=== PATIENT | female | born 1935 | race Caucasian/White ===

== ENCOUNTER 2023-04-28 21:59 | Inpatient (IN) ==
--- OUTSIDE RECORDS SUMMARY | 2023-04-28 22:07 | External Medical Summary ---
Author Name Unknown Address Unknown Organization [id number]:LABORATORY [facility] - [address] [address] Laboratory Report Ordering Provider Test Date Status WILLY WIN 03/26/2023 10:41:40 Final Observation Date Value Abnormality Reference (Units ) Status Albumin 03/26/2023 10:41:40 3.9 3.8-5.0 (g/dL) Final AST (Aspartate aminotransferase) 03/26/2023 10:41:40 19 10-35 (U/L) Final Alk Phos 03/26/2023 10:41:40 64 35-130 (U/L) Final ALT (Alanine aminotransferase) 03/26/2023 10:41:40 6 Below low normal 10-35 (U/L) Final Bilirubin, Total 03/26/2023 10:41:40 0.6 <=1.2 (mg/dL) Final Bilirubin, Direct 03/26/2023 10:41:40 <0.2 0.0-0.3 (mg/dL) Final Protein 03/26/2023 10:41:40 7.4 6.0-8.3 (g/dL) Final Performing Location LABORATORY [facility] - [address] [address]
--- OUTSIDE RECORDS SUMMARY | 2023-04-28 22:07 | External Medical Summary ---
Author Name Unknown Address Unknown Organization [id number]:LABORATORY [facility] [place] - [address] [facility] [address] Laboratory Report Ordering Provider Test Date Status WILLY WIN 03/26/2023 10:41:40 Final Observation Date Value Abnormality Reference (Units ) Status Triglyceride 03/26/2023 10:41:40 85 <=174 ( mg/dL) Final Triglyceride Reference Range s (mg/dL):
<150 Acceptable
150-174 Borderline high
175-499 High
>=500 Very high Cholesterol 03/26/2023 10:41:40 162 <200 (mg /dL) Final Total Cholesterol Reference Ranges (mg/dL):
<200 Desirable
200-239 Borderline high
>=240 High HDL 03/26/2023 10:41:40 56 >49 (mg/dL ) Final HDL Cholesterol Reference Ra nges (mg/dL):
>=60 High (Desirable)
<50 Low (Undesirable) For Females
<40 Low (Undesirable) For Males NON-HDL CHOLESTEROL 03/26/2023 10:41:40 106 <=159 (mg/dL) Final Non-HDL Cholesterol Referenc e Range (mg/dL):
<100 Target level for high risk ASCVD patient
<130 Optimal for general population
130-159 Near optimal for general population
160-189 Borderline High
190-219 High
>=220 Very High LDL, (calculated) 03/26/2023 10:41:40 89 <= 129 (mg/dL) Final LDL Cholesterol Reference Ra nges (mg/dL):
<70 Target level for high risk ASCVD patient
<100 Optimal for general population
100-129 Near optimal for general population
130-159 Borderline high
160-189 High
>=190 Very high Performing Location LABORATORY [facility] [place] - [address] [facility] [address]
--- OUTSIDE RECORDS SUMMARY | 2023-04-28 22:07 | External Medical Summary ---
Author Name Unknown Address Unknown Organization K1F:LABORATORY [facility] - [address] [address] Laboratory Report Ordering Provider Test Date Status WILLY WIN 03/26/2023 10:41:40 Final Observation Date Value Abnormality Reference (Units ) Status Phosphate 03/26/2023 10:41:40 3.5 2.5-4.8 (m g/dL) Final Performing Location LABORATORY [facility] - [address] [address]
--- OUTSIDE RECORDS SUMMARY | 2023-04-28 22:07 | External Medical Summary ---
Author Name Unknown Address Unknown Organization K1F:LABORATORY [facility] - [facility] [address] [address] Laboratory Report Ordering Provider Test Date Status WILLY WIN 03/26/2023 10:41:40 Final Observation Date Value Abnormality Reference (Units ) Status WBC, Total 03/26/2023 10:41:40 4.65 4.00-10.80 (K/uL) Final RBC 03/26/2023 10:41:40 4.00 3.85-5.15 (M/uL) Final Hemoglobin 03/26/2023 10:41:40 11.7 Below low normal 12.0-15.3 (g/dL) Final HCT 03/26/2023 10:41:40 37.1 36.0-45.2 (%) Final MCV 03/26/2023 10:41:40 92.8 81.5-97.5 (fL) Final MCH 03/26/2023 10:41:40 29.3 27.0-34.0 (pg) Final MCHC 03/26/2023 10:41:40 31.5 32.0-36.0 (g/dL) Final RDW 03/26/2023 10:41:40 17.0 11.5-15.5 (%) Final Platelets 03/26/2023 10:41:40 263 140-400 (K/uL) Final MPV 03/26/2023 10:41:40 10.0 6.6-11.1 (fL) Final Nucleated erythrocytes/100 leukocytes [Ratio] in Blood by Automated count 03/26/2023 10:41:40 0 <=0 (/100 WBCs) Final Performing Location LABORATORY [facility] - [address] [address]
--- OUTSIDE RECORDS SUMMARY | 2023-04-28 22:07 | External Medical Summary ---
Author Name Unknown Address Unknown Organization K01:[facility] [place] [address] [place] [address] Laboratory Report Ordering Provider Test Date Status LAURA NINO 03/26/2023 10:36:00 Final Observation Date Value Abnormality Reference (Units ) Status Erythrocyte sedimentation rate by Photometric method 03/26/2023 10:36:00 78 Above high normal <30 (mm/hour) Final Performing Location [facility] [place] [address] [address]
--- OUTSIDE RECORDS SUMMARY | 2023-04-28 22:07 | External Medical Summary ---
Author Name Unknown Address Unknown Organization K01:[facility] [place] [address] [address] Laboratory Report Ordering Provider Test Date Status LAURA NINO 03/26/2023 10:36:00 Final Observation Date Value Abnormality Reference (Units ) Status Hep B surface Ag 03/26/2023 10:36:00 Negative Neg ative Final Performing Location LABORATORY [facility] - [address] [address]
--- OUTSIDE RECORDS SUMMARY | 2023-04-28 22:07 | External Medical Summary | Summary of Care ---
Author Name Unknown Organization [facility] Address [address] [place] [address] Phone [phone] Care Team Providers Care Buffet Attendant Name Role Phone John Negro MD Primary Care Provider [phone] Reason for Visit * Reason Comments Outpatient Testing Encounter Details Date Type Department Care Team (Late st Contact Info) Description 03/26/2023 10:40 AM EST Laboratory Laboratory, [facility] [address] [place] [address] [facility], Lab [address] [place] [address] Rheumatoid arthritis involving multiple sites with positive rheumatoid factor (HCC); Encounter for long-term (current) use of medications; Chondrocalcinosis due to pyrophosphate crystals; Encounter for screening for other viral diseases; Iatrogenic hypothyroidism; Malignant neoplasm of central portion of left 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); 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) Allergies Active Allergy Reactions Criticality Noted Date Comments Codeine 06/02/2015 Hydroxychloroquine Rash 10/23/2022 Sulfa Antibiotics Muscle pain 06/02/2015 documented as of this encounter (statuses as of 03/26/2023) Medications Medication Sig Dispensed Refills Start Date End Date Status Aspirin 81 MG TBEC Take 1 Tablet by mouth in the morning. 0 Active citalopram (CELEXA) 10 MG Tablet Take 1 Tablet by mouth in the morning. 0 Active Acetaminophen 500 MG Oral Tablet take 2 tablets by oral route once daily as needed 0 Active Levothyroxine Sodium 125 MCG Oral Tablet (Levoxyl) 0 02/25/2021 Active Multi-Vitamin Oral Tablet take 1 tablet by oral route every day with food 0 Active Famotidine 20 MG Oral Tablet (Pepcid) Take by mouth 1 Tablet before bedtime. 34 Tablet 0 04/20/2021 Active Albuterol Sulfate HFA 108 (90 Base) MCG/ACT Inhalation Aerosol Solution Inhale 2 Puffs by mouth in the morning and 2 Puffs at noon and 2 Puffs in the evening and 2 Puffs before bedtime. 18 g 1 04/27/2022 Active Benzonatate 100 MG Oral Capsule (Tessalsummer Perlderrick) Take 1 Capsule by mouth in the morning and 1 Capsule at noon and 1 Capsule before bedtime. 30 Capsule 1 04/27/2022 Active Hospital, Clinic, or Other Facility Administered Medication Ordered Dose Route Frequency Start Date End Date Status Albuterol Sulfate (Proventil) (2.5 MG/3ML) 0.083% inhalation solution 2.5 mgIndications:Mild intermittent asthma without complication 2.5 mg NEBULIZER PRN 05/17/2022 05/17/2023 Acti ve Albuterol Sulfate (Proventil) (5 MG/ML) 0.5% *conc* inhalation solution 2.5 mgIndications:Mild intermittent asthma without complication 2.5 mg NEBULIZER PRN 05/17/2022 05/17/2023 Acti ve documented as of this encounter (statuses as of 03/26/2023) Active Problems Problem Noted Date Diagnosed Date Rheumatoid arthritis involvi ng multiple sites with positive rheumatoid factor 10/23/2022 Bilateral pneumonia 04/22/2022 Human metapneumovirus (hMPV) pneumonia Osteoarthritis of both wrists 09/10/2018 Chondrocalcinosis due to pyrophosphate crystals 07/25/2018 Trigger middle finger of right hand 07/25/2018 Influenza A 03/25/2017 Right lower lobe pneumonia 03/25/2017 Hypokalemia 03/25/2017 documented as of this encounter (statuses as of 03/26/2023) Social History Tobacco Use Types Packs/Day Years Used Date Smoking Tobacco: Former Cigarettes Smokeless Tobacco: Never Alcohol Use Standard Drinks/Week Comments No 0 (1 standard drink = 0.6 oz pur e alcohol) Sex and Gender Information Value Date Recorded Sex Assigned at Not on file Gender Identity Not on file Sexual Orientation Not on file Job Start Date Occupation Industry Not on file Not on file Not on file documented as of this encounter Functional Status Functional Status Response Date of Assess ment Are you deaf or do you have serious difficulty h earing? No 04/22/2022 Are you blind or do you have serious difficulty seeing, even when wearing glasses? No 04/22/2022 Do you have serious difficul ty walking or climbing stairs? (5 years old or older) No 04/22/2022 Do you have difficulty dress ing or bathing? (5 years old or older) No 04/22/2022 Because of a physical, menta l, or emotional condition, do you have difficulty doing errands alone such as visiting a doctor s office or shopping? (15 years old or older) No 04/23/19 Cognitive Status Response Date of Assessm ent Because of a physical, menta l, or emotional condition, do you have serious difficulty concentrating, remembering, or making decisions? (5 years old or older) No 04/22/2022 documented as of this encounter Plan of Treatment Upcoming Encounters Date Type Department Care Team (Late st Contact Info) Description 05/15/2023 11:15 AM EDT Appointment Radiology, [facility] [address] [place] [address] 07/18/2023 3:00 PM EDT [facility] [place] [address] [facility] [phone] Keon Guerrero PA-C [address] [facility] [address] Pending Results Name Type Priority Associated Diagnoses Date /Time BASIC METABOLIC PANEL Lab STAT Iatrogenic hypothyroidism Malignant neoplasm of central portion of left 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) 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) 03/26/2023 10:41 AM EST CBC WITH WBC DIFFERENTIAL Lab STAT Iatrogenic hypothyroidism Malignant neoplasm of central portion of left 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) 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) 03/26/2023 10:41 AM EST GGTP Lab STAT Iatrogenic hypothyroidism Malignant neoplasm of central portion of left 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) 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) 03/26/2023 10:41 AM EST HEPATIC FUNCTION PANEL Lab STAT Iatrogenic hypothyroidism Malignant neoplasm of central portion of left 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) 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) 03/26/2023 10:41 AM EST LD Lab STAT Iatrogenic hypothyroidism Malignant neoplasm of central portion of left 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) 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) 03/26/2023 10:41 AM EST LIPID PANEL WITH DIRECT LDL IF TG IS HIGH Lab STAT Iatrogenic hypothyroidism Malignant neoplasm of central portion of left 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) 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) 03/26/2023 10:41 AM EST MAGNESIUM Lab STAT Iatrogenic hypothyroidism Malignant neoplasm of central portion of left 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) 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) 03/26/2023 10:41 AM EST PHOSPHORUS Lab STAT Iatrogenic hypothyroidism Malignant neoplasm of central portion of left 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) 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) 03/26/2023 10:41 AM EST TSH Lab STAT Iatrogenic hypothyroidism Malignant neoplasm of central portion of left 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) 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) 03/26/2023 10:41 AM EST CBC Lab STAT Iatrogenic hypothyroidism Malignant neoplasm of central portion of left 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) 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) 03/26/2023 10:41 AM EST DIFFERENTIAL, AUTOMATED Lab STAT Iatrogenic hypothyroidism Malignant neoplasm of central portion of left 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) 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) 03/26/2023 10:41 AM EST Scheduled Orders Name Type Priority Associated Diagnoses Orde r Schedule HEPATITIS C ANTIBODY Lab Routine 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) Ordered: 03/26/2023 HEPATITIS C RNA ADD ON Lab Routine 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) Ordered: 03/26/2023 Health Maintenance Due Date Last Done Comments COVID-19 Vaccine (#1) 04/02/1936 Pneumococcal Vaccine: 65+ Years (1 - PCV) 10/01/1941 Depression Screening 1947 DTaP,Tdap,and Td Vaccines (1 - Tdap) 1956 Zoster Vaccines (1 of 2) 10/01/1987 Influenza Vaccine (FLU shot) (#1) 2022 TSH 08/29/2023 08/28/2022, 02/12, 07/01/2021, Additional history exists DXA Scan 06/27/2028 06/27/2021 GARDASIL-HPV IMMUNIZATION SERIES Aged Out No longer eligible based on patient's age to complete this topic Hepatitis B Aged Out No longer eligi ble based on patient's age to complete this topic MENINGOCOCCAL (MENACTRA/MENVEO) Aged Out No longer eligible based on patient's age to complete this topic documented as of this encounter Medical Devices Not on filedocumented as of this encounter Visit Diagnoses Diagnosis Rheumatoid arthritis involving multiple sites with positive rheumatoid factor (HCC) Encounter for long-term (current) use of medications Encounter for long-term (current) use of other medications 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 Encounter for screening for other viral diseases Iatrogenic hypothyroidism Other iatrogenic hypothyroidism Malignant neoplasm of central portion of left 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) Malignant neoplasm of central portion of female breast 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) Malignant neoplasm of central portion of female breast documented in this encounter Advance Directives Latest Code Status on File Code Status Date Activated Date Inactivated Comments Full Code 04/22/2022 1:26 PM 04/27/2022 7:05 PM This order reflects the patients wishes and were consensually agreed upon. Question Answer Comments Discussion of Advance Directives occurred with: Patient Does the patient have a Living Will? No Does the patient have Health Care Power of Co Founder And Chief Strategy Officer? No Code Status History Code Status Date Activated Date Inactivated Comments Full Code 03/25/2017 6:36 PM 03/28/2017 11:14 PM This order reflects the patients wishes and were consensually agreed upon. Question Answer Comments Discussion of Advance Directives occurred with: Patient Does the patient have a Living Will? No Does the patient have Health Care Power of Co Founder And Chief Strategy Officer? No Care Teams Buffet Attendant Relationship Specialty Start Date End Date John Negro MD [address] [place] [address] PCP - General Hematology 03/03/16 documented as of this encounter
--- OUTSIDE RECORDS SUMMARY | 2023-04-28 22:07 | External Medical Summary | Summary of Care ---
Author Name Unknown Organization [facility] Address [address] [place] [address] Phone [phone] Care Team Providers Care Bridge Expert Name Role Phone John Negro MD Primary Care Provider [phone] Reason for Visit * Reason Comments Outpatient Testing Encounter Details Date Type Department Care Team (Late st Contact Info) Description 03/26/2023 10:40 AM EST Laboratory Laboratory, [facility] [address] [place] [address] [facility], Lab [address] [place] [address] Rheumatoid arthritis involving multiple sites [...] Description 05/15/2023 11:15 AM EDT Appointment Radiology, [facility] [address] [place] [address] 07/18/2023 3:00 PM EDT [facility] [place] [address] [facility] [place] [phone] Keon Guerrero PA-C [address] [facility] [address] Pending Results Name Type Priority Associated Diagnoses [...] Type Priority Associated Diagnoses Orde r Schedule CBC Lab Routine Rheumatoid arthritis involving multiple sites with positive rheumatoid factor (HCC) Encounter for long-term (current) use of medications Ordered: 03/26/2023 DIFFERENTIAL, AUTOMATED Lab Routine Rheumatoid arthritis involving multiple sites with positive rheumatoid factor (HCC) Encounter for long-term (current) use of medications Ordered: 03/26/2023 HEPATITIS C ANTIBODY Lab Routine Chondrocalcinosis due [...] the patient have Health Care Power of Shorts Sifter? No Code Status History Code Status Date Activated Date Inactivated Comments Full Code 03/25/2017 6:36 PM 03/28/2017 11:14 PM This order reflects the patients wishes and were consensually agreed upon. Question Answer Comments Discussion of Advance Directives occurred with: Patient Does the patient have a Living Will? No Does the patient have Health Care Power of Shorts Sifter? No Care Teams Bridge Expert Relationship Specialty Start Date End Date John Negro MD [address] [place] [id number] PCP - General Hematology 03/03/16 documented as of this encounter
--- OUTSIDE RECORDS SUMMARY | 2023-04-28 22:07 | External Medical Summary ---
Author Name Unknown Address Unknown Organization K1F:LABORATORY [facility] - [address] [address] Laboratory Report Ordering Provider Test Date Status WILLY WIN 03/26/2023 10:41:40 Final Observation Date Value Abnormality Reference (Units ) Status TSH 03/26/2023 10:41:40 2.07 0.27-4.20 (uIU/mL) Final Performing Location LABORATORY [facility] - [address] [place] [address]
--- OUTSIDE RECORDS SUMMARY | 2023-04-28 22:07 | External Medical Summary | Summary of Care ---
Author Name Unknown Organization [facility] Address [address] [place] [address] Phone [phone] Care Team Providers Care Pe Manager Name Role Phone John Negro MD Primary Care Provider [phone] Reason for Visit * Reason Comments Outpatient Testing Encounter Details Date Type Department Care Team (Late st Contact Info) Description 03/26/2023 10:40 AM EST Laboratory Laboratory, [facility] [address] [place] [address] [facility], Lab [address] [place] [address] Rheumatoid arthritis involving multiple sites [...] Description 05/15/2023 11:15 AM EDT Appointment Radiology, [facility] [address] [address] 07/18/2023 3:00 PM EDT [facility] [address] [facility] [phone] Ke[facility] Guerrero [facility]C [address] [facility] [address] Pending Results Name Type Priority Associated Diagnoses Date /Time ERYTHROCYTE SEDIMENTATION RATE (ESR) Lab Routine Rheumatoid arthritis involving multiple sites with positive rheumatoid factor (HCC) Encounter for long-term (current) use of medications 03/26/2023 10:36 AM EST HEPATITIS B CORE ANTIBODIES IGG AND IGM Lab Routine 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) Encounter for screening for other viral diseases 03/26/2023 10:36 AM EST HEPATITIS C ANTIBODY SCREEN WITH PROGRESSION TO HEPATITIS C RNA QUANTITATIVE Lab Routine 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) 03/26/2023 10:36 AM EST QUANTIFERON TB GOLD PLUS Lab Routine 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) 03/26/2023 10:36 AM EST HEPATITIS B SURFACE ANTIBODY Lab Routine 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) 03/26/2023 10:36 AM EST HEPATITIS B SURFACE ANTIGEN Lab Routine 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) Encounter for screening for other viral diseases 03/26/2023 10:36 AM EST HEPATITIS C ANTIBODY Lab Routine 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) 03/26/2023 10:36 AM EST HEPATITIS C RNA ADD ON Lab Routine 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) 03/26/2023 10:36 AM EST GGTP Lab STAT Iatrogenic hypothyroidism [...] 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) 03/26/2023 10:41 AM EST Health Maintenance Due Date Last Done Comments COVID-19 Vaccine (#1) 04/02/1936 Pneumococcal Vaccine: 65+ Years (1 - PCV) 10/01/1941 Depression Screening 1947 DTaP,Tdap,and Td Vaccines (1 - Tdap) 1956 Zoster Vaccines (1 of 2) 10/01/1987 Influenza Vaccine (FLU shot) (#1) 2022 TSH 03/26/2024 03/26/2023, 08/12, 02/27/2022, Additional history exists DXA Scan 06/27/2028 06/27/2021 [...] Not on filedocumented as of this encounter Procedures Procedure Name Priority Date/Time Associated Diagnosis Comments DIFFERENTIAL, AUTOMATED STAT 03/26/2023 10:41 AM EST Iatrogenic hypothyroidism Malignant neoplasm of central portion of left 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) 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) HEPATIC FUNCTION PANEL STAT 03/26/2023 10:41 AM EST Iatrogenic hypothyroidism Malignant neoplasm of central portion of left 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) 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) BASIC METABOLIC PANEL STAT 03/26/2023 10:41 AM EST Iatrogenic hypothyroidism Malignant neoplasm of central portion of left 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) 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) CBC STAT 03/26/2023 10:41 AM EST Iatrogenic hypothyroidism Malignant neoplasm of central portion of left 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) 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) PHOSPHORUS STAT 03/26/2023 10:41 AM EST Iatrogenic hypothyroidism Malignant neoplasm of central portion of left 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) 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) LD STAT 03/26/2023 10:41 AM EST Iatrogenic hypothyroidism Malignant neoplasm of central portion of left 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) 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) CBC STAT 03/26/2023 10:41 AM EST Iatrogenic hypothyroidism Malignant neoplasm of central portion of left 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) 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) TSH STAT 03/26/2023 10:41 AM EST Iatrogenic hypothyroidism Malignant neoplasm of central portion of left 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) 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) MAGNESIUM STAT 03/26/2023 10:41 AM EST Iatrogenic hypothyroidism Malignant neoplasm of central portion of left 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) 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) documented in this encounter Results * (ABNORMAL) DIFFERENTIAL, AUTOMATED (03/26/2023 10:41 AM EST) WBC 4.65 4.00 - 10.80 K/uL 03/26/2023 10:58 AM EST [facility] Neutrophils % 53.4 40.0 - 75.0 % 03/26/2023 10:58 AM EST [facility] Lymphocytes % 25.8 18.0 - 42.0 % 03/26/2023 10:58 AM EST [facility] Monocytes % 8.8 1.0 - 11.0 % 03/26/2023 10:58 AM EST [facility] Eosinophils % 10.5(H) 0.0 - 6.0 % 03/26/2023 10:58 AM EST [facility] Basophils % 1.3 0.0 - 2.0 % 03/26/2023 10:58 AM EST [facility] Immature Granulocytes % 0.2 0.0 - 2.0 % 03/26/2023 10:58 AM EST [facility] Absolute Neutrophils 2.48 1.80 - 7.70 K/uL 03/26/2023 10:58 AM EST [facility] Absolute Lymphocytes 1.20 1.00 - 4.80 K/ul 03/26/2023 10:58 AM EST [facility] Absolute Monocytes 0.41 0.00 - 1.10 K/uL 03/26/2023 10:58 AM EST [facility] Absolute Eosinophils 0.49 0.00 - 0.70 K/uL 03/26/2023 10:58 AM EST [facility] Absolute Basophils 0.06 0.00 - 0.20 K/uL 03/26/2023 10:58 AM EST [facility] Absolute Immature Granulocytes 0.01 0.00 - 0.20 K/uL 03/26/2023 10:58 AM EST [facility] Blood Venous blood specimen / Unknown Venipuncture / Unknown 03/26/2023 10:41 AM EST 03/26/2023 10:45 AM EST John Negro MD LAB BLOOD ORDERABLES LABORATORY [facility] [address] [place] [address] * (ABNORMAL) CBC (03/26/2023 10:41 AM EST) WBC 4.65 4.00 - 10.80 K/uL 03/26/2023 10:58 AM EST LAB[facility]ATORY [facility] RBC 4.00 3.85 - 5.15 M/uL 03/26/2023 10:58 AM EST LAB[facility]ATORY [facility] HGB 11.7(L) 12.0 - 15.3 g/dL 03/26/2023 10:58 AM EST LAB[facility]ATORY [facility] HCT 37.1 36.0 - 45.2 % 03/26/2023 10:58 AM EST LAB[facility]ATORY [facility] MCV 92.8 81.5 - 97.5 fL 03/26/2023 10:58 AM EST LAB[facility]ATORY [facility] MCH 29.3 27.0 - 34.0 pg 03/26/2023 10:58 AM EST LAB[facility]ATORY [facility] MCHC 31.5 32.0 - 36.0 g/dL 03/26/2023 10:58 AM EST LAB[facility]ATORY [facility] RDW 17.0 11.5 - 15.5 % 03/26/2023 10:58 AM EST LAB[facility]ATORY [facility] PLT 263 140 - 400 K/uL 03/26/2023 10:58 AM EST LAB[facility]ATORY [facility] MPV 10.0 6.6 - 11.1 fL 03/26/2023 10:58 AM EST LAB[facility]ORY [facility] nRBCs 0 <=0 /100 WBCs 03/26/2023 10:58 AM EST LAB[facility]ORY [facility] Blood Venous blood specimen / Unknown Venipuncture / Unknown 03/26/2023 10:41 AM EST 03/26/2023 10:45 AM EST John Negro MD LAB BLOOD ORDERABLES Performing Organization Address City/[facility]/ZIP Co de Phone Number LABORATORY [address] [address] * TSH (03/26/2023 10:41 AM EST) TSH 2.07 0.27 - 4.20 uIU/mL 03/26/2023 11:19 AM EST LABORATORY [facility] Blood Venous blood specimen / Unknown Venipuncture / Unknown 03/26/2023 10:41 AM EST 03/26/2023 10:45 AM EST John Negro MD LAB BLOOD ORDERABLES Performing Organization Address City/[facility] Co de Phone Number LABORATORY [address] [address] * PHOSPHORUS (03/26/2023 10:41 AM EST) Phosphorus 3.5 2.5 - 4.8 mg/dL 03/26/2023 11:19 AM EST LABORATORY [facility] Blood Venous blood specimen / Unknown Venipuncture / Unknown 03/26/2023 10:41 AM EST 03/26/2023 10:45 AM EST John Negro MD LAB BLOOD ORDERABLES Performing Organization Address City/[facility] de Phone Number LABORATORY [address] [address] * MAGNESIUM (03/26/2023 10:41 AM EST) Magnesium 2.1 1.5 - 2.6 mg/dL 03/26/2023 11:19 AM EST LABORATORY GL Blood Venous blood specimen / Unknown Venipuncture / Unknown 03/26/2023 10:41 AM EST 03/26/2023 10:45 AM EST John Negro MD LAB BLOOD ORDERABLES Performing Organization Address City/[facility] de Phone Number LABORATORY [address] [address] * LD (03/26/2023 10:41 AM EST) LD 205 <=250 U/L 03/26/2023 11:19 AM EST LABORATORY GL Blood Venous blood specimen / Unknown Venipuncture / Unknown 03/26/2023 10:41 AM EST 03/26/2023 10:45 AM EST John Negro MD LAB BLOOD ORDERABLES Performing Organization Address [facility] de Phone Number LABORATORY [address] [phone] * (ABNORMAL) HEPATIC FUNCTION PANEL (03/26/2023 10:41 AM EST) Albumin 3.9 3.8 - 5.0 g/dL 03/26/2023 11:19 AM EST [facility] AST 19 10 - 35 U/L 03/26/2023 11:19 AM EST [facility] Alkaline Phosphatase 64 35 - 130 U/L 03/26/2023 11:19 AM EST [facility] ALT 6(L) 10 - 35 U/L 03/26/2023 11:19 AM EST [facility] Bilirubin, Total 0.6 <=1.2 mg/dL 03/26/2023 11:19 AM EST [facility] Bilirubin, Direct <0.2 0.0 - 0.3 mg/dL 03/26/2023 11:19 AM EST [facility] Protein 7.4 6.0 - 8.3 g/dL 03/26/2023 11:19 AM EST [facility] Blood Venous blood specimen / Unknown Venipuncture / Unknown 03/26/2023 10:41 AM EST 03/26/2023 10:45 AM EST John Negro MD LAB BLOOD ORDERABLES Performing Organization Address [facility] Co de Phone Number LABORATORY [address] [phone] * BASIC METABOLIC PANEL (03/26/2023 10:41 AM EST) BUN 14 6 - 20 mg/dL 03/26/2023 11:19 AM EST [facility] Creatinine 0.7 0.5 - 1.0 mg/dL 03/26/2023 11:19 AM EST [facility] Estimated Glomerular Filtration Rate 86 >=60 mL/min 03/26/2023 11:19 AM EST [facility] Comment:eGFR is calculated b ased on the CKD-EPI 2020 equation Sodium 139 135 - 146 mmol/L 03/26/2023 11:19 AM EST [facility] Potassium 4.4 3.5 - 5.1 mmol/L 03/26/2023 11:19 AM EST [facility] Chloride 103 98 - 107 mmol/L 03/26/2023 11:19 AM EST [facility] CO2 27 22 - 32 mmol/L 03/26/2023 11:19 AM EST [facility] Anion Gap 9 7 - 15 mmol/L 03/26/2023 11:19 AM EST [facility] Glucose 94 70 - 120 mg/dL 03/26/2023 11:19 AM EST [facility] Calcium 8.9 8.4 - 10.2 mg/dL 03/26/2023 11:19 AM EST [facility] Blood Venous blood specimen / Unknown Venipuncture / Unknown 03/26/2023 10:41 AM EST 03/26/2023 10:45 AM EST John Negro MD LAB BLOOD ORDERABLES Performing Organization Address City/State/[facility] Co de Phone Number [facility] [address] [place] [address] documented in this encounter Visit Diagnoses Diagnosis Rheumatoid arthritis [...] the patient have Health Care Power of Band Master? No Code Status History Code Status Date Activated Date Inactivated Comments Full Code 03/25/2017 6:36 PM 03/28/2017 11:14 PM This order reflects the patients wishes and were consensually agreed upon. Question Answer Comments Discussion of Advance Directives occurred with: Patient Does the patient have a Living Will? No Does the patient have Health Care Power of Band Master? No Care Teams Pe Manager Relationship Specialty Start Date End Date John Negro MD [address] [place] [address] PCP - General Hematology 03/03/16 documented as of this encounter
--- OUTSIDE RECORDS SUMMARY | 2023-04-28 22:07 | External Medical Summary ---
Author Name Unknown Address Unknown Organization [id number]:[facility] [address] [place] [address] Laboratory Report Ordering Provider Test Date Status WILLY WIN 03/26/2023 10:41:40 Final Observation Date Value Abnormality Reference (Units ) Status GGT 03/26/2023 10:41:40 16 <=40 (U/L) Final Performing Location [facility] - [address] [place] [address]
--- OUTSIDE RECORDS SUMMARY | 2023-04-28 22:07 | External Medical Summary | Summary of Care ---
Author Name Unknown Organization [facility] Address [address] [place] [address] Phone [phone] Care Team Providers Care Finish Sander Name Role Phone John Negro MD Primary Care Provider [phone] Encounter Details Date Type Department Care Team ([facility] st Contact Info) Description 02/16/2023 Orders Only Radiology, [facility] [address] [place] [address] Requisition, External Radiology [address] [place] [address] Calculus of kidney* Allergies Active Allergy Reactions Criticality Noted Date Comments Codeine 06/02/2015 Hydroxychloroquine Rash 10/23/2022 Sulfa Antibiotics Muscle pain 06/02/2015 documented as of this encounter (statuses as of 02/16/2023) Medications Medication Sig Dispensed Refills Start Date [...] 04/27/2022 Active Benzonatate 100 MG Oral Capsule (Drew Hathaway) Take 1 Capsule by mouth in the [...] as of this encounter (statuses as of 02/16/2023) Active Problems Problem Noted Date Diagnosed Date Rheumatoid arthritis involvi ng multiple sites with positive rheumatoid factor 10/23/2022 Bilateral pneumonia 04/22/2022 Human metapneumovirus (hMPV) pneumonia Osteoarthritis of both wrists 09/10/2018 Chondrocalcinosis due to pyrophosphate crystals 07/25/2018 Trigger middle finger of right hand 07/25/2018 Influenza A 03/25/2017 Right lower lobe pneumonia 03/25/2017 Hypokalemia 03/25/2017 documented as of this encounter (statuses as of 02/16/2023) Social History Tobacco Use Types Packs/Day Years [...] (15 years old or older) No 04/23/19 23 Cognitive Status Response Date of Assessm ent Because of a physical, menta l, or emotional condition, do you have serious difficulty concentrating, remembering, or making decisions? (5 years old or older) No 04/22/2022 documented as of this encounter Plan of Treatment Upcoming Encounters Date Type Department Care Team (Late st Contact Info) Description 05/15/2023 11:15 AM EDT Appointment Radiology, [facility] [address] [place] [address] 07/18/2023 3:00 PM EDT Office Visit Pulmonary Medicine [facility] [place] [address] [place] [phone] Keon Guerrero PA-C [address] [place] [place] [address] Scheduled Orders Name Type Priority Associated Diagnoses Orde r Schedule US RENAL Medical Imaging Routine Calculus of kidney Expected: 05/15/2023, Expires: 03/19/2024 Health Maintenance Due Date Last Done Comments [...] as of this encounter Visit Diagnoses Diagnosis Calculus of kidney- Primary documented in this encounter Advance Directives Latest Code Status on File Code Status Date Activated Date Inactivated Comments Full Code 04/22/2022 1:26 PM 04/27/2022 7:05 PM This order reflects the patients wishes and were consensually agreed upon. Question Answer Comments Discussion of Advance Directives occurred with: Patient Does the patient have a Living Will? No Does the patient have Health Care Power of Marketing Services Manager? No Code Status History Code Status Date Activated Date Inactivated Comments Full Code 03/25/2017 6:36 PM 03/28/2017 11:14 PM This order reflects the patients wishes and were consensually agreed upon. Question Answer Comments Discussion of Advance Directives occurred with: Patient Does the patient have a Living Will? No Does the patient have Health Care Power of Marketing Services Manager? No Care Teams Finish Sander Relationship Specialty Start Date End Date John Negro MD [address] [place] [address] PCP - General Hematology 03/03/16 documented as of this encounter
--- OUTSIDE RECORDS SUMMARY | 2023-04-28 22:07 | External Medical Summary ---
Author Name Unknown Address Unknown Organization : Laboratory Report Ordering Provider Test Date Status LAURA NINO 03/26/2023 10:36:00 Final Observation Date Value Abnormality Reference (Units ) Status Mycobacterium tuberculosis stimulated gamma interferon [Interpretation] in Blood Qualitative 03/26/2023 10:36:00 NEGATIVE NEGATIVE Final Negative test result. M. tub erculosis complex
infection unlikely. Gamma interferon background [Units/volume] in Blood by Immunoassay 03/26/2023 10:36:00 0.02 (IU/mL) Final Mitogen stimulated gamma int erferon [Units/volume] corrected for background in Blood 03/26/2023 10:36:00 1.08 (IU/mL) Final Mycobacterium tuberculosis s timulated gamma interferon release by CD4+ T-cells [Units/volume] corrected for background in Blood 03/26/2023 10:36:00 0.00 (IU/mL) Final Mycobacterium tuberculosis s timulated gamma interferon release by CD4+ and CD8+ T-cells [Units/volume] corrected for background in Blood 03/26/2023 10:36:00 0.00 (IU/mL) Final The Nil tube value reflects the background interferon
gamma immune response of the patient's blood sample.
This value has been subtracted from the patient's
displayed TB and Mitogen results.
Lower than expected results with the Mitogen tube
prevent false-negative Quantiferon readings by detect-
ing a patient with a potential immune suppressive
condition and/or suboptimal pre-analytical specimen
handling.
The TB1 Antigen tube is coated with the M.
tuberculosis-specific antigens designed to elicit
responses from TB antigen primed CD4+ helper
T-lymphocytes.
The TB2 Antigen tube is coated with the M.
tuberculosis-specific antigens designed to elicit
responses from TB antigen primed CD4+ helper and CD8+
cytotoxic T-lymphocytes.
For additional information, please refer to
http://education.[employer].Keduo/faq/NTW560
(This link is being provided for information/
educational purposes only.)

Test Performed at:
[facility]
[address] [facility]
[place] [address]
Sae Gil M.D., Ph.D.,Director of Laboratories Performing Location
--- OUTSIDE RECORDS SUMMARY | 2023-04-28 22:07 | External Medical Summary | Summary of Care ---
Author Name Unknown Organization [facility] Address [address] [place] [address] Phone [phone] Care Team Providers Care Chronic Disease Epidemiologist Name Role Phone John Negro MD Primary Care Provider [phone] Reason for Visit * Reason Comments Outpatient Testing Encounter Details Date Type Department Care Team (Late st Contact Info) Description 03/26/2023 10:40 AM EST Laboratory Laboratory, [facility] [address] [place] [address] [facility], Lab [address] [place] [address] Rheumatoid arthritis involving multiple sites [...] as of this encounter (statuses as of 04/04/2023) Medications Medication Sig Dispensed Refills Start Date [...] as of this encounter (statuses as of 04/04/2023) Active Problems Problem Noted Date Diagnosed Date Rheumatoid arthritis involvi ng multiple sites with positive rheumatoid factor 10/23/2022 Bilateral pneumonia 04/22/2022 Human metapneumovirus (hMPV) pneumonia Osteoarthritis of both wrists 09/10/2018 Chondrocalcinosis due to pyrophosphate crystals 07/25/2018 Trigger middle finger of right hand 07/25/2018 Influenza A 03/25/2017 Right lower lobe pneumonia 03/25/2017 Hypokalemia 03/25/2017 documented as of this encounter (statuses as of 04/04/2023) Social History Tobacco Use Types Packs/Day Years [...] Description 05/15/2023 11:15 AM EDT Appointment Radiology, [facility] [address] [place] [address] 07/18/2023 3:00 PM EDT [facility] [address] [facility] [phone] Keon Guerrero PA-C [address] [facility] [address] Health Maintenance Due Date Last Done Comments Pneumococcal Vaccine: 65+ Years (1 of 2 - PCV) 10/01/1941 Depression Screening 1947 DTaP,Tdap,and Td Vaccines (1 - Tdap) 1956 Zoster Vaccines (1 of 2) 10/01/1987 COVID-19 Vaccine (1 - 2022-24 season) 2022 Influenza Vaccine (FLU shot) (#1) 2022 TSH 03/26/2024 03/26/2023, 07/08/2022, 02/27/2022, Additional history exists DXA Scan 06/27/2028 [...] central portion of right 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) LIPID PANEL WITH DIRECT LDL IF TG IS HIGH STAT 03/26/2023 10:41 AM EST Iatrogenic hypothyroidism [...] central portion of right 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) GGTP STAT 03/26/2023 10:41 AM EST Iatrogenic hypothyroidism [...] central portion of right 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) HEPATITIS C RNA ADD ON Routine 03/26/2023 10:36 AM EST 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) QUANTIFERON TB GOLD PLUS Routine 03/26/2023 10:36 AM EST 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) HEPATITIS B SURFACE ANTIBODY Routine 03/26/2023 10:36 AM EST 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) HEPATITIS C ANTIBODY SCREEN WITH PROGRESSION TO HEPATITIS C RNA QUANTITATIVE Routine 03/26/2023 10:36 AM EST 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) HEPATITIS C ANTIBODY Routine 03/26/2023 10:36 AM EST 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) HEPATITIS B CORE ANTIBODIES IGG AND IGM Routine 03/26/2023 10:36 AM EST 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) Encounter for screening for other viral diseases HEPATITIS B SURFACE ANTIGEN Routine 03/26/2023 10:36 AM EST 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) Encounter for screening for other viral diseases ERYTHROCYTE SEDIMENTATION RATE (ESR) Routine 03/26/2023 10:36 AM EST Rheumatoid arthritis involving multiple sites with positive rheumatoid factor (HCC) Encounter for long-term (current) use of medications documented in this encounter Results * (ABNORMAL) [...] 0.20 K/uL 03/26/2023 10:58 AM EST LABORATORY [facility] Blood Venous blood specimen / Unknown Venipuncture / Unknown 03/26/2023 10:41 AM EST 03/26/2023 10:45 AM EST John Negro MD LAB BLOOD ORDERABLES LABORATORY [facility] [address] [place] [address] * (ABNORMAL) CBC (03/26/2023 10:41 AM EST) WBC 4.65 4.00 - 10.80 K/uL 03/26/2023 10:58 AM EST LABORATORY [facility] RBC 4.00 3.85 - 5.15 M/uL 03/26/2023 10:58 AM EST LABORATORY [facility] HGB 11.7(L) 12.0 - 15.3 g/dL 03/26/2023 10:58 AM EST LABORATORY [facility] HCT 37.1 36.0 - 45.2 % 03/26/2023 10:58 AM EST LABORATORY [facility] MCV 92.8 81.5 - 97.5 fL 03/26/2023 10:58 AM EST LABORATORY [facility] MCH 29.3 27.0 - 34.0 pg 03/26/2023 10:58 AM EST LABORATORY [facility] MCHC 31.5 32.0 - 36.0 g/dL 03/26/2023 10:58 AM EST LABORATORY [facility] RDW 17.0 11.5 - 15.5 % 03/26/2023 10:58 AM EST LABORATORY [facility] PLT 263 140 - 400 K/uL 03/26/2023 10:58 AM EST LABORATORY [facility] MPV 10.0 6.6 - 11.1 fL 03/26/2023 10:58 AM EST LABORATORY [facility] nRBCs 0 <=0 /100 WBCs 03/26/2023 10:58 AM EST LABORATORY [facility] Blood Venous blood specimen / Unknown Venipuncture / Unknown 03/26/2023 10:41 AM EST 03/26/2023 10:45 AM EST John Negro MD LAB BLOOD ORDERABLES Performing Organization Address City/[facility]/ZIP Co de Phone Number LABORATORY [address] [address] * TSH (03/26/2023 10:41 AM EST) TSH 2.07 0.27 - 4.20 uIU/mL 03/26/2023 11:19 AM EST LABORATORY [facility] Blood Venous blood specimen / Unknown Venipuncture / Unknown 03/26/2023 10:41 AM EST 03/26/2023 10:45 AM EST John Negro MD LAB BLOOD ORDERABLES Performing Organization Address [facility] Co de Phone Number LABORATORY [address] [address] * PHOSPHORUS (03/26/2023 10:41 AM EST) Phosphorus 3.5 2.5 - 4.8 mg/dL 03/26/2023 11:19 AM EST LABORATORY [facility] Blood Venous blood specimen / Unknown Venipuncture / Unknown 03/26/2023 10:41 AM EST 03/26/2023 10:45 AM EST Narrative Authorizing Provider Result Dg Negro MD LAB BLOOD ORDERABLES Performing Organization Address City/[facility]/ZIP Co de Phone Number LABORATORY [address] [address] * MAGNESIUM (03/26/2023 10:41 AM EST) Magnesium 2.1 1.5 - 2.6 mg/dL 03/26/2023 11:19 AM EST LABORATORY [facility] Blood Venous blood specimen / Unknown Venipuncture / Unknown 03/26/2023 10:41 AM EST 03/26/2023 10:45 AM EST Narrative Authorizing Provider Result Dg Negro MD LAB BLOOD ORDERABLES LABORATORY [address] [address] * LIPID PANEL WITH DIRECT LDL IF TG IS HIGH (03/26/2023 10:41 AM EST) Pathologist [facility] Triglycerides 85 <=174 mg/dL 03/26/2023 2:59 PM EST LABORATORY [facility] Comment: Triglyceride Reference Ranges (mg/dL): <150 Acceptable 150-174 Borderline high 175-499 High >=500 Very high Cholesterol 162 <200 mg/dL 03/26/2023 2:59 PM EST LABORATORY [facility] Comment: Total Cholesterol Reference Ranges (mg/dL): <200 Desirable 200-239 Borderline high >=240 High HDL Cholesterol 56 >49 mg/dL 2:59 PM EST LABORATORY [facility] Comment: HDL Cholesterol Reference Ranges (mg/dL): >=60 High (Desirable) <50 Low (Undesirable) For Females <40 Low (Undesirable) For Males Non-HDL Cholesterol 106 <=159 mg/dL 03/26/2023 2:59 PM EST LABORATORY [facility] Comment: Non-HDL Cholesterol Reference Range (mg/dL): <100 Target level for high risk ASCVD patient <130 Optimal for general population 130-159 Near optimal for general population 160-189 Borderline High 190-219 High >=220 Very High LDL Cholesterol 89 <=129 mg/dL 03/26/2023 2:59 PM EST LABORATORY [facility] Comment: LDL Cholesterol Reference Ranges (mg/dL): <70 Target level for high risk ASCVD patient <100 Optimal for general population 100-129 Near optimal for general population 130-159 Borderline high 160-189 High >=190 Very high Blood Venous blood specimen / Unknown Venipuncture / Unknown 03/26/2023 10:41 AM EST 03/26/2023 10:45 AM EST John Negro MD LAB BLOOD ORDERABLES LABORATORY [facility] [address] [place] [address] * LD (03/26/2023 10:41 AM EST) Pathologist [facility] LD 205 <=250 U/L 03/26/2023 11:19 AM EST LABORATORY [facility] Blood Venous blood specimen / Unknown Venipuncture / Unknown 03/26/2023 10:41 AM EST 03/26/2023 10:45 AM EST John Negro MD LAB BLOOD ORDERABLES Performing Organization Address City/[facility] Co de Phone Number LABORATORY [facility] [address] [place], [place] [phone] * (ABNORMAL) HEPATIC FUNCTION PANEL (03/26/2023 10:41 [...] John Negro MD LAB BLOOD ORDERABLES LABORATORY [facility] [address] [place] [address] * GGTP (03/26/2023 10:41 AM EST) GGTP 16 <=40 U/L 03/26/2023 2:5 9 PM EST LABORATORY [facility] Blood Venous blood specimen / Unknown Venipuncture / Unknown 03/26/2023 10:41 AM EST 03/26/2023 10:45 AM EST John Negro MD LAB BLOOD ORDERABLES LABORATORY [facility] [address] [place] [address] * BASIC METABOLIC PANEL (03/26/2023 10:41 AM [...] John Negro MD LAB BLOOD ORDERABLES LABORATORY [facility] [address] [place] [address] * HEPATITIS C RNA ADD ON (03/26/2023 10:36 AM EST) Blood Venous blood specimen / Unknown Venipuncture / Unknown 03/26/2023 10:36 AM EST 03/26/2023 10:50 AM EST Zaire Ruggiero MD LAB BLOOD ORDERABLE S Performing Organization Address City/[facility]/ZIP Co de Phone Number LABORATORY [facility] [address] [place] [address] * HEPATITIS C ANTIBODY (03/26/2023 10:36 AM EST) Hepatitis C Antibody Negative Negative 03/26/2023 8:58 PM EST LABORATORY [facility] Comment:Further HCV quantita tive testing not performed per protocol. Blood Venous blood specimen / Unknown Venipuncture / Unknown 03/26/2023 10:36 AM EST 03/26/2023 10:51 AM EST Zaire Ruggiero MD LAB BLOOD ORDERABLE S Performing Organization Address [facility] Co de Phone Number LABORATORY [facility] [address] [place] [address] * HEPATITIS B SURFACE ANTIGEN (03/26/2023 10:36 AM EST) Hepatitis B Surface Antigen Negative Negative 03/26/2023 8:58 PM EST LABORATORY [facility] Blood Venous blood specimen / Unknown Venipuncture / Unknown 03/26/2023 10:36 AM EST 03/26/2023 10:51 AM EST Zaire Ruggiero MD LAB BLOOD ORDERABLE S Performing Organization Address City/[facility] Co de Phone Number LABORATORY [facility] [address] [place] [address] * HEPATITIS B SURFACE ANTIBODY (03/26/2023 10:36 AM EST) Hepatitis B Surface Antibody, Quantitative <3.5 mIU/mL 03/26/2023 8:58 PM EST LABORATORY [facility] Hepatitis B Surface Antibody, Qualitative Negative 03/26/2023 8:58 PM EST LABORATORY [facility] Hepatitis B Surface Antibody, Interpretation NOT immune to Hepatitis B Virus 03/26/2023 8:58 PM EST LABORATORY [facility] Comment: POSITIVE: >=11.5 mIU/mL INDETERMINATE: 8.5-<11.5 mIU/mL NEGATIVE: <8.5 mIU/mL Blood Venous blood specimen / Unknown Venipuncture / Unknown 03/26/2023 10:36 AM EST 03/26/2023 10:51 AM EST Zaire Ruggiero MD LAB BLOOD ORDERABLE S Performing Organization Address City/State/[facility] Co de Phone Number LABORATORY [facility] [address] [place] [address] * QUANTIFERON TB GOLD PLUS (03/26/2023 10:36 AM EST) [facility] Quantiferon-TB Plus, 1T NEGATIVE NEGATIVE 03/28/2023 3:21 PM EST [facility] [place] Comment: Negative test result. M. tuberculosis complex infection unlikely. NIL 0.02 IU/mL 03/28/2023 3:21 PM EST [facility] [place] Mitogen-NIL 1.08 IU/mL 03/28/2023 3:21 PM EST [facility] TB1-NIL 0.00 IU/mL 03/28/2023 3:21 PM EST [facility] TB2-NIL 0.00 IU/mL 03/28/2023 3:21 PM EST [facility] [place] Comment: The Nil tube value reflects the background [...] T-lymphocytes. For additional information, please refer to http://education.Patient Feed.Webee/faq/ODC623 (This link is being provided for information/ educational purposes only.) Test Performed at: [facility] [address] [address] Sae Gil M.D., Ph.D.,Director of Laboratories Blood Venous blood specimen / Unknown Venipuncture / Unknown 03/26/2023 10:36 AM EST 03/26/2023 10:52 AM EST Zaire Ruggiero MD LAB BLOOD ORDERABLE S [facility] [address] [address] * HEPATITIS B CORE ANTIBODIES IGG AND IGM (03/26/2023 10:36 AM EST) Hepatitis B Core Antibodies IgG and IgM Negative Negative 03/26/2023 8:58 PM EST LABORATORY [facility] Blood Venous blood specimen / Unknown Venipuncture / Unknown 03/26/2023 10:36 AM EST 03/26/2023 10:51 AM EST Zaire Ruggiero MD LAB BLOOD ORDERABLE S Performing Organization Address City/[facility]/ZIP Co de Phone Number LABORATORY [facility] [address] [place] [address] * (ABNORMAL) ERYTHROCYTE SEDIMENTATION RATE (ESR) (03/26/2023 10:36 AM EST) Pathologist [facility] ESR 78(H) <30 mm/hour 03/26/2023 7:45 PM EST LABORATORY [facility] Blood Venous blood specimen / Unknown 03/26/2023 10:36 AM EST 03/26/2023 10:51 AM EST Zaire Ruggiero MD LAB BLOOD ORDERABLE S Performing Organization Address City/[facility] Co de Phone Number LABORATORY [facility] [address] [place] [address] documented in this encounter Visit Diagnoses Diagnosis [...] the patient have Health Care Power of Janitor And Cleaner? No Code Status History Code Status Date Activated Date Inactivated Comments Full Code 03/25/2017 6:36 PM 03/28/2017 11:14 PM This order reflects the patients wishes and were consensually agreed upon. Question Answer Comments Discussion of Advance Directives occurred with: Patient Does the patient have a Living Will? No Does the patient have Health Care Power of Janitor And Cleaner? No Care Teams Chronic Disease Epidemiologist Relationship Specialty Start Date End Date John Negro MD [address] [place] [address] PCP - General Hematology 03/03/16 documented as of this encounter
--- OUTSIDE RECORDS SUMMARY | 2023-04-28 22:07 | External Medical Summary ---
Author Name Unknown Address Unknown Organization [id number]:LABORATORY [facility] [address] [facility] [place] [address] Laboratory Report Ordering Provider Test Date Status WILLY WIN 03/26/2023 10:41:40 Final Observation Date Value Abnormality Reference (Units ) Status SYNC LEUKOCYTES IN BLOOD BY AUTOMATED COUNT 03/26/2023 10:41:40 4.65 4.00-10.80 (K/uL) Final Segs 03/26/2023 10:41:40 53.4 40.0-75.0 (%) Final Lymphs % 03/26/2023 10:41:40 25.8 18.0-42.0 (%) Final Monos 03/26/2023 10:41:40 8.8 1.0-11.0 (%) Final Eosinophils 03/26/2023 10:41:40 10.5 Above high normal 0.0-6.0 (%) Final Basos 03/26/2023 10:41:40 1.3 0.0-2.0 (%) Final Immature Granulocyte, Percent 03/26/2023 10:41:40 0.2 0.0-2.0 (%) Final Absolute Segs 03/26/2023 10:41:40 2.48 1.80-7.70 (K/uL) Final Lymphs, absolute 03/26/2023 10:41:40 1.20 1.00-4.80 (K/ul) Final Monos, Abs 03/26/2023 10:41:40 0.41 0.00-1.10 (K/uL) Final Eos, Abs 03/26/2023 10:41:40 0.49 0.00-0.70 (K/uL) Final Basos, Abs 03/26/2023 10:41:40 0.06 0.00-0.20 (K/uL) Final Immature Granulocytes, Number 03/26/2023 10:41:40 0.01 0.00-0.20 (K/uL) Final Performing Location LABORATORY [facility] - [facility] [address]. [place] [address]
--- OUTSIDE RECORDS SUMMARY | 2023-04-28 22:07 | External Medical Summary ---
Author Name Unknown Address Unknown Organization [id number]:LABORATORY [facility] - [address] [place] [place] [address] Laboratory Report Ordering Provider Test Date Status WILLY WIN 03/26/2023 10:41:40 Final Observation Date Value Abnormality Reference (Units ) Status Magnesium 03/26/2023 10:41:40 2.1 1.5-2.6 (m g/dL) Final Performing Location LABORATORY [facility] - [address] [place] [address]
--- OUTSIDE RECORDS SUMMARY | 2023-04-28 22:07 | External Medical Summary ---
Author Name Unknown Address Unknown Organization [id number]:LABORATORY [facility] - [address] [place] [address] Laboratory Report Ordering Provider Test Date Status WILLY WIN 03/26/2023 10:41:40 Final Observation Date Value Abnormality Reference (Units ) Status BUN 03/26/2023 10:41:40 14 6-20 (mg/dL) Final Creatinine 03/26/2023 10:41:40 0.7 0.5-1.0 (mg/dL) Final Glomerular filtration rate/1.73 sq M.predicted [Volume Rate/Area] in Serum, Plasma or Blood by Creatinine-based formula (CKD-EPI) 03/26/2023 10:41:40 86 >=60 (mL/min) Final eGFR is calculated based on the CKD-EPI 2020 equation SODIUM 03/26/2023 10:41:40 139 135-146 (m mol/L) Final Potassium 03/26/2023 10:41:40 4.4 3.5-5.1 (m mol/L) Final Cl 03/26/2023 10:41:40 103 98-107 (mm ol/L) Final CO2 03/26/2023 10:41:40 27 22-32 (mmo l/L) Final Anion gap 03/26/2023 10:41:40 9 7-15 (mmol /L) Final Glucose 03/26/2023 10:41:40 94 70-120 (mg /dL) Final Calcium 03/26/2023 10:41:40 8.9 8.4-10.2 ( mg/dL) Final Performing Location LABORATORY [facility] - [address] [place] [address]
--- OUTSIDE RECORDS SUMMARY | 2023-04-28 22:07 | External Medical Summary ---
Author Name Unknown Address Unknown Organization [id number]:LABORATORY [facility] - [address] [place] [address] Laboratory Report Ordering Provider Test Date Status LAURA NINO 03/26/2023 10:36:00 Final Observation Date Value Abnormality Reference (Units ) Status Hepatitis B virus core Ab [Presence] in Serum 03/26/2023 10:36:00 Negative Negative Final Performing Location LABORATORY [facility] - [address] [place] [address]
--- OUTSIDE RECORDS SUMMARY | 2023-04-28 22:07 | External Medical Summary ---
Author Name Unknown Address Unknown Organization K01:LABORATORY [place] [address] [place] [address] Laboratory Report Ordering Provider Test Date Status LAURA NINO 03/26/2023 10:36:00 Final Observation Date Value Abnormality Reference (Units) Status Hepatitis B virus surface Ab [Units/volume] in Serum or Plasma by Immunoassay 03/26/2023 10:36:00 <3.5 (mIU/mL) Final Hepatitis B virus surface Ab [Presence] in Serum by Immunoassay 03/26/2023 10:36:00 Negative Final HEPATITIS B SURFACE ANTIBODY, INTERPRETATION 03/26/2023 10:36:00 NOT immune to Hepatitis B Virus Final POSITIVE: >=11.5 mIU/mL
INDETERMINATE: 8.5-<11.5 mIU/mL
NEGATIVE: <8.5 mIU/mL Performing Location LABORATORY [place] [address] [place] [address]
--- OUTSIDE RECORDS SUMMARY | 2023-04-28 22:07 | External Medical Summary | Summary of Care ---
Author Name Unknown Organization [facility] Address [address] [place] [address] Phone [phone] Care Team Providers Care Post Anesthesia Care Unit Nurse Name Role Phone John Negro MD Primary Care Provider [phone] Reason for Visit * Reason Comments Outpatient Testing Encounter Details Date Type Department Care Team (Late st Contact Info) Description 03/26/2023 10:40 AM EST Laboratory Laboratory, [facility] [address] [place] [address] [facility], Lab [address] [place] [address] Rheumatoid arthritis involving multiple sites [...] Description 05/15/2023 11:15 AM EDT Appointment Radiology, [facility] [address] [place] [address] 07/18/2023 3:00 PM EDT [facility] [address] [facility] [place] [phone] Keon Guerrero PA-C [address] [facility] [place] [address] Pending Results Name Type Priority Associated Diagnoses [...] rheumatoid factor (HCC) 03/26/2023 10:36 AM EST BASIC METABOLIC PANEL Lab STAT Iatrogenic hypothyroidism [...] 10.80 K/uL 03/26/2023 10:58 AM EST LABORATORY [facility] Neutrophils % 53.4 40.0 - 75.0 % 03/26/2023 10:58 AM EST LABORATORY [facility] Lymphocytes % 25.8 18.0 - 42.0 % 03/26/2023 10:58 AM EST LABORATORY [facility] Monocytes % 8.8 1.0 - 11.0 % 03/26/2023 10:58 AM EST LABORATORY [facility] Eosinophils % 10.5(H) 0.0 - 6.0 % 03/26/2023 10:58 AM EST LABORATORY [facility] Basophils % 1.3 0.0 - 2.0 % 03/26/2023 10:58 AM EST LABORATORY [facility] Immature Granulocytes % 0.2 0.0 - 2.0 % 03/26/2023 10:58 AM EST LABORATORY [facility] Absolute Neutrophils 2.48 1.80 - 7.70 K/uL 03/26/2023 10:58 AM EST LABORATORY [facility] Absolute Lymphocytes 1.20 1.00 - 4.80 K/ul 03/26/2023 10:58 AM EST LABORATORY [facility] Absolute Monocytes 0.41 0.00 - 1.10 K/uL 03/26/2023 10:58 AM EST LABORATORY [facility] Absolute Eosinophils 0.49 0.00 - 0.70 K/uL 03/26/2023 10:58 AM EST LABORATORY [facility] Absolute Basophils 0.06 0.00 - 0.20 K/uL 03/26/2023 10:58 AM EST LABORATORY [facility] Absolute Immature Granulocytes 0.01 0.00 - 0.20 K/uL 03/26/2023 10:58 AM EST LABORATORY [facility] Blood Venous blood specimen / Unknown Venipuncture / Unknown 03/26/2023 10:41 AM EST 03/26/2023 10:45 AM EST John Negro MD LAB BLOOD ORDERABLES LABORATORY [facility] [address] [place] [address] * (ABNORMAL) CBC (03/26/2023 10:41 AM EST) WBC 4.65 4.00 - 10.80 K/uL 03/26/2023 10:58 AM EST LABORATORY [facility] RBC 4.00 3.85 - 5.15 M/uL 03/26/2023 10:58 AM EST LABORATORY [facility] HGB 11.7(L) 12.0 - 15.3 g/dL 03/26/2023 10:58 AM EST LABORATORY [facility] HCT 37.1 36.0 - 45.2 % 03/26/2023 10:58 AM EST LAB[facility]ATORY [facility] MCV 92.8 81.5 - 97.5 fL 03/26/2023 10:58 AM EST LAB[facility]ATORY [facility] MCH 29.3 27.0 - 34.0 pg 03/26/2023 10:58 AM EST LAB[facility]ATORY [facility] MCHC 31.5 32.0 - 36.0 g/dL 03/26/2023 10:58 AM EST LAB[facility]ATORY [facility] RDW 17.0 11.5 - 15.5 % 03/26/2023 10:58 AM EST LABORATORY [facility] PLT 263 140 - 400 K/uL 03/26/2023 10:58 AM EST LAB[facility]ATORY [facility] MPV 10.0 6.6 - 11.1 fL 03/26/2023 10:58 AM EST LABORATORY [facility] nRBCs 0 <=0 /100 WBCs 03/26/2023 10:58 AM EST LABORATORY [facility] Blood Venous blood specimen / Unknown Venipuncture / Unknown 03/26/2023 10:41 AM EST 03/26/2023 10:45 AM EST John Negro MD LAB BLOOD ORDERABLES Performing Organization Address City/State/[facility] Co de Phone Number LABORATORY [facility] [address] [place] [address] documented in this encounter Visit [...] the patient have Health Care Power of Inspector Integrated Circuits? No Code Status History Code Status Date Activated Date Inactivated Comments Full Code 03/25/2017 6:36 PM 03/28/2017 11:14 PM This order reflects the patients wishes and were consensually agreed upon. Question Answer Comments Discussion of Advance Directives occurred with: Patient Does the patient have a Living Will? No Does the patient have Health Care Power of Inspector Integrated Circuits? No Care Teams Post Anesthesia Care Unit Nurse Relationship Specialty Start Date End Date John Negro MD [address] [place] [address] PCP - General Hematology 03/03/16 documented as of this encounter
[2023-04-28] MEDS: KETOROLAC TROMETHAMINE 15 MG/ML VIAL IV STA (22:49)
[2023-04-28] MEDS: ONDANSETRON INJ 2 MG/ML 2 ML VIAL IV STA (22:50)
[2023-04-28] MEDS: SODIUM CHLORIDE 0.9% 500 ML IV STA (22:50)
[2023-04-28 23:09] LABS: Basophils # (auto) 0.04 K/uL (0.00-0.20); Basophils % (auto) 0.7 %; Eosinophils # (auto) 0.06 K/uL (0.00-0.50); Eosinophils % (auto) 1.1 %; Hematocrit (blood only) 40.5 % (37.0-47.0); Hemoglobin 12.9 g/dl (12.0-16.0); Immature Granulocytes # (auto) 0.01 K/uL (0.01-0.20); Immature Granulocytes % (auto) 0.2 %; Lymphocytes # (auto) 0.96 K/uL (1.20-3.40); Lymphocytes % (auto) 17.2 %; Mean Corpuscular Hemoglobin 29.1 pg (25.0-34.0); Mean Corpuscular Hgb Conc 31.9 g/dL (32.0-36.0); Mean Corpuscular Volume 91.2 fL (80.0-100.0); Mean Platelet Volume 10.1 fL (9.4-12.4); Monocytes # (auto) 0.43 K/uL (0.11-0.59); Monocytes % (auto) 7.7 %; Neutrophils # (auto) 4.09 K/uL (1.40-6.50); Neutrophils % (auto) 73.1 %; Platelet Count 274 K/uL (130-400); RDW Coefficient of Variation 16.4 % (11.5-14.5); RDW Standard Deviation 55.3 fL (36.4-46.3); Red Blood Count 4.44 M/uL (4.20-5.40); White Blood Count 5.59 K/ul (4.8-10.8)
[2023-04-28 23:25] LABS: Albumin Globulin Ratio 1.1 (0.9-2); Albumin Level 4.2 gm/dl (3.4-5.0); BUN Creatinine Ratio 27.7 (10-20); Bilirubin,Total 0.6 mg/dl (0.2-1.0); Calcium 9.4 mg/dl (8.6-10.3); Creatinine Clr Calc Pharmacy 53.4 ml/min; Est GFR (African American) 93.8 ml/min; Potassium 3.6 mmol/L (3.5-5.1); Total Protein 8.2 gm/dl (6.0-8.3)
--- NOTE | 2023-04-28 23:36 | CT Scan Report ---
Exam(s): CT ABDOMEN + PELVIS Without Contrast EXAM: CT Abdomen and Pelvis Without Intravenous Contrast CLINICAL HISTORY: Reason for exam: kidney stones. TECHNIQUE: Axial computed tomography images of the abdomen and pelvis without intravenous contrast. CTDI is 21.15 mGy and DLP is 880.8 mGy-cm. Automated exposure control was utilized for the study. A dose lowering technique was utilized adhering to the principles of ALARA. COMPARISON: [place] [id number] FINDINGS: Mediastinum: Moderate hiatal hernia. ABDOMEN: Liver: Unremarkable. Gallbladder and bile ducts: Unremarkable. Pancreas: Unremarkable. Spleen: Unremarkable. Adrenals: Unremarkable. Kidneys and ureters: Nonobstructing nephrolithiasis on the right. No hydronephrosis in the kidneys. Stomach and bowel: Swirling of the mesentery in the right lower quadrant. The cecum is flipped into the left upper quadrant and distended up to 10 cm. Findings consistent with cecal volvulus. Colonic diverticulosis without diverticulitis. PELVIS: Appendix: No findings to suggest acute appendicitis. Bladder: Unremarkable. Reproductive: Hysterectomy. ABDOMEN and PELVIS: Intraperitoneal space: Unremarkable. No free air. No significant fluid collection. Bones/joints: No acute fracture. Soft tissues: Unremarkable. Vasculature: Aortobiiliac atherosclerotic calcifications. Lymph nodes: Unremarkable. IMPRESSION: Swirling of the mesentery in the right lower quadrant. The cecum is flipped into the left upper quadrant and distended up to 10 cm. Findings consistent with cecal volvulus. No pneumatosis or perforation. Communications: Call Doctor Volvulus Electronically signed by: Darien Herrera MD 04/28/23 23:35 PM
[2023-04-29] MEDS: cefTRIAXone SODIUM 2,000 MG/50 ML BAG IV STA (00:43)
[2023-04-29] MEDS: metroNIDAZOLE 500 MG/100 ML BAG IV STA (00:43)
[2023-04-29] MEDS ORDERED: ATROPINE SULFATE 0.1 MG/ML 10ML SYR IV PRN (01:12)
[2023-04-29] MEDS ORDERED: ONDANSETRON INJ 2 MG/ML 2 ML VIAL IV PRN ×2 (01:12→05:13)
[2023-04-29] MEDS ORDERED: ePHEDrine sulfate 50 MG/ML AMP IV PRN (01:12)
--- NOTE | 2023-04-29 01:12 | Anesthesiology Consultation ---
Date of Service April 29, 2023 Assessment & Plan (1) Encounter for pre-operative examination: Chart Review Chart Review: Patient NOT seen in Pre Admission Testing emergent procedure Consults Requested none History Surgery Operation Date: 04/29/23 01:05 Proposed Procedures p Exploratory Laparotomy - Rob Marquis DO Height/Weight Height: 4 ft 11 in Weight: 68.9 kg Allergies Allergy/AdvReac Type Severity Reaction Status Date / Time Sulfa (Sulfonamide Allergy Unknown UNKNOWN - Verified 04/29/23 00:41 Antibiotics) ALLERGY A CHILD codeine AdvReac Severe SEVERE Verified 04/29/23 00:41 HEADACHES Medications Home Medications Medication Instructions Recorded Confirmed Last Taken aspirin 81 mg tablet,delayed 81 mg PO QAM 01/16/23 04/29/23 04/28/23 release citalopram 10 mg tablet 10 mg PO HS 01/16/23 04/29/23 04/28/23 levothyroxine 125 mcg capsule 125 mcg PO QAM 01/16/23 04/29/23 04/28/23 omeprazole 20 mg capsule,delayed 20 mg PO HS 01/16/23 04/29/23 04/28/23 release albuterol sulfate 90 mcg/actuation 1 puff inhalation QID PRN 01/23/23 04/29/23 Unknown aerosol inhaler Shortness Of Breath Past Medical History Medical History Nausea and vomiting after administration of anesthetic agent Anxiety History of pneumonia 04/2022 Mild asthma rescue inhaler Kidney stone Limb alert care status left arm Hypercholesterolemia hx, no current medication Breast cancer dx 1988 left sx and chemo; and 2009 right, sx tx Anemia Hypothyroidism Past Surgical History Surgical History Hx of appendectomy Hx of left cataract extraction S/P trigger finger release H/O: hysterectomy w/bladder sx. History of mastectomy 1988 w/lymph node dissection, limb restriction lt arm, and 2010 right side H/O total knee replacement 1995 and 2003; revision 2011 History of right cataract surgery History of anesthesia reaction gets hypotensive with anesthesia History of tooth extraction History of tonsillectomy age 36 History of esophagogastroduodenoscopy (EGD) History of colonoscopy Social History Smoking Status: Former smoker Do You Dip or Chew Tobacco: No Hx Alcohol Use: Yes Alcohol type: wine alcohol intake frequency: holidays/special occasions only Hx Substance Use: No substance use type: does not use Physical Exam Vital Signs Last Vital Signs Temp 97.9 F 04/28/23 22:05 Pulse 61 04/28/23 23:52 Resp 18 04/28/23 23:52 BP 187/84 H 04/28/23 23:52 Pulse Ox 94 04/28/23 23:52 O2 Del Method Room Air 04/28/23 23:52 Testing Laboratory Results 04/28/23 22:53 04/28/23 22:53 Electrocardiogram Date: 01/16/23 Findings: + RBBB LAFB
[2023-04-29] MEDS ORDERED: ONDANSETRON INJ 2 MG/ML 2 ML VIAL ONE (01:15)
[2023-04-29] MEDS ORDERED: SUCCINYLCHOLINE 100MG/5ML SYR IV ONE (01:15)
[2023-04-29] MEDS ORDERED: LIDOCAINE 2% 2 ML VIAL/AMP(20MG/ML) INFIL ONE (01:15)
[2023-04-29] MEDS ORDERED: DEXAMETHASONE SOD INJ 4 MG/ML VIAL ONE (01:15)
[2023-04-29] MEDS ORDERED: ROCURONIUM BROMIDE 10 MG/ML 5 ML VIAL IV ONE (01:15)
[2023-04-29] MEDS ORDERED: PROPOFOL IV EMULSION 10 MG/ML 20 ML VIAL IV ONE (01:15)
[2023-04-29] MEDS ORDERED: fentaNYL citrate PF 100 MCG/2 ML VIAL ONE (01:16)
--- NOTE | 2023-04-29 01:34 | History & Physical Report ---
Date of Service April 29, 2023 Assessment & Plan (1) Cecal volvulus: Plan: Clinically stable. We discussed the urgent need for surgical intervention to prevent rapid deterioration and bowel perforation or infarction. She will need exploratory laparotomy with likely right hemicolectomy and ileocolonic anastomosis. We discussed potential risks which include bleeding infection injury to other organs such as ureter bowel etc., anastomotic leak or stricture, DVT, PE, TN, CVA etc. Following our discussion I answered all of her and her son's questions. Will proceed this evening urgently with exploratory laparotomy possible bowel resection surgery as needed. History of Present Illness Primary Care Provider: John Negro MD Norma is a pleasant 87-year-old female who is here with her son. She began having abdominal pain last evening after eating. This worsened and she began profusely vomiting. 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 Allergies Allergy/AdvReac Type Severity Reaction Status Date / Time Sulfa (Sulfonamide Allergy Unknown UNKNOWN - Verified 04/29/23 00:41 Antibiotics) ALLERGY A CHILD codeine AdvReac Severe SEVERE Verified 04/29/23 00:41 HEADACHES Home Medications Medication Instructions Recorded Confirmed Type aspirin 81 mg tablet,delayed 81 mg PO QAM 01/16/23 04/29/23 History release citalopram 10 mg tablet 10 mg PO HS 01/16/23 04/29/23 History levothyroxine 125 mcg capsule 125 mcg PO QAM 01/16/23 04/29/23 History omeprazole 20 mg capsule,delayed 20 mg PO HS 01/16/23 04/29/23 History release albuterol sulfate 90 mcg/actuation 1 puff inhalation QID PRN 01/23/23 04/29/23 History aerosol inhaler Shortness Of Breath Past Med/Surg History Medical History Nausea and vomiting after administration of anesthetic agent Anxiety History of pneumonia 04/2022 Mild asthma rescue inhaler Kidney stone Limb alert care status left arm Hypercholesterolemia hx, no current medication Breast cancer dx 1988 left sx and chemo; and 2009 right, sx tx Anemia Hypothyroidism Surgical History Hx of appendectomy Hx of left cataract extraction S/P trigger finger release H/O: hysterectomy w/bladder sx. History of mastectomy 1988 w/lymph node dissection, limb restriction lt arm, and 2010 right side H/O total knee replacement 1995 and 2003; revision 2011 History of right cataract surgery History of anesthesia reaction gets hypotensive with anesthesia History of tooth extraction History of tonsillectomy age 36 History of esophagogastroduodenoscopy (EGD) History of colonoscopy Social History Smoking Status: Former smoker Tobacco Type: Cigarettes Second Hand Exposure: No; Do You Dip or Chew Tobacco: No; Hx Alcohol Use: Yes Alcohol type: wine Hx Substance Use: No Preferred Language: Sinhala Communication Ability: Effective River Guide Required: No Beliefs That Will Affect Care: None marital status: / Current Living Situation: Family current occupational status: retired Feels Safe at Home: Yes Assistive Devices: Denture - Upper, Denture - Lower and Glasses Review of Systems All systems reviewed & are unremarkable except as noted in HPI & below Physical Exam Constitutional: WD/WN, vitals as above no acute distress and not ill appearing Eyes: PERRL, conjunctivae normal, anicteric sclerae EOM intact bilaterally ENMT: external ear and nose normal, oropharynx normal Ears: no hearing impairment Neck: trachea midline, no thyromegaly Respiratory: normal respiratory effort; no respiratory distress and does not use accessory muscles Cardiovascular: Rate/Rhythm: regular rate and regular rhythm Gastrointestinal (Abdomen): Soft. Minimal distention. Minimal tenderness. No peritoneal signs. Skin: no rashes, warm and dry Psychiatric: Orientation: alert, oriented x 3 and cooperative Results & Data Vital Signs (Past 12 Hours) Vital Signs Temp Pulse Pulse Resp BP BP Pulse Ox 04/28/23 23:52 61 18 187/84 H 94 04/28/23 22:05 36.6 C 61 20 133/84 96 O2 Del Method 04/28/23 23:52 Room Air 04/28/23 22:05 Room Air
[2023-04-29] MEDS ORDERED: GLYCOPYRROLATE 0.2 MG/ML VIAL ONE (02:44)
[2023-04-29] MEDS ORDERED: ePHEDrine sulfate 50 MG/5 ML SYR ONE (02:44)
[2023-04-29] MEDS ORDERED: PHENYLEPHRINE 100MCG/ML 10ML SYR IV ONE (02:44)
[2023-04-29] MEDS ORDERED: SUGAMMADEX SODIUM 200 MG/2 ML VIAL IV ONE (02:44)
--- NOTE | 2023-04-29 03:17 | Operative Report ---
PG Post Operative Report Pre & Post Diagnosis Operation Date: 04/29/23 01:05 Pre-Op Diagnosis: Cecal Volvulus Post-Op Diagnosis: Cecal Volvulus I identified the patient and participated in the time-out.: Yes Procedure Operation Date: 04/29/23 01:05 Actual Procedures p Exploratory Laparotomy; Open Right Hemicolectomy - Rob Marquis DO Surgeon Rob Marquis DO Functional Manager n/a Estimated Blood Loss 10 Findings Consistent with Post-Op Diagnosis Specimens terminal ileum, right colon, portion of transverse colon Description of Procedure After informed consent was obtained the patient was taken to the operating room and placed in supine position. After successful intubation a Marks catheter was placed sterilely as well as a nasogastric tube. The abdomen was then sterilely prepped and draped in usual fashion. Midline incision was made from above the umbilicus down and around. This was carried down through the soft tissue using cautery. Peritoneum was elevated using hemostats and incised using a Metzenbaum scissor. The incision was opened to both poles using cautery. We immediately encountered a large dilated cecum and right colon which was in the left upper quadrant. The mesentery was edematous and completely twisted although mild ischemia was apparent there was no infarction. I was able to de-torsed the right colon. It was quite floppy with an elongated mesentery. I began by making a mesenteric window several inches proximal to the ileocecal valve. A JACK brown cartridge linear stapler was used to transect the small bowel. I then found a point on the transverse colon where the bowel appeared normal. I made a window in the mesentery just proximal to the middle colic vessels. The colon was transected using a JACK brown cartridge stapler as well. LigaSure device was used to take down the mesentery of the terminal ileum cecum right colon and portion of the transverse colon. The specimen was passed off to be sent to pathology. I then ran the bowel from the ligament of Treitz to the stapled portion of the small bowel. I also did palpate the pelvis and upper quadrants and no other gross abnormalities were identified. A [id number] small bowel to transverse colon anastomosis was performed using a JACK 60 mm brown cartridge. The common enterotomy was also closed using a JACK brown cartridge. 3-[address] to [address] a crotch stitch. 2-0 Vicryl was used to close the mesenteric defect. I will state that I did change my gloves after performing the anastomosis. There was no spillage of bowel whatsoever. Thorough irrigation of the entire abdomen was performed. There was adequate hemostasis. The fascia was closed using 0-looped PDS in a running fashion. Soft tissue was irrigated and skin was closed over quarter inch Shingleton drain using skin kenton. Silver dressing gauze and tape was applied. The patient was awakened extubated and transferred to recovery in stable condition. I attest to the content of the Intraoperative Record and any orders documented therein. Any exceptions are noted below.
[2023-04-29] MEDS: fentaNYL citrate PF 100 MCG/2 ML VIAL IV PRN (03:20)
--- NOTE | 2023-04-29 03:42 | Anesthesiology Progress Note ---
Date of Service April 29, 2023 Anesthesia Post Procedure Vital Signs Vital Signs: Temp Pulse Pulse Resp BP BP BP 04/29/23 03:20 70 17 156/92 H 04/29/23 03:11 97.5 F L 72 17 131/88 04/28/23 23:52 61 18 187/84 H 04/28/23 22:05 97.9 F 61 20 133/84 Pulse Ox O2 Del Method O2 Flow Rate 04/29/23 03:20 100 Oxymask 6 04/29/23 03:11 92 Oxymask 6 04/28/23 23:52 94 Room Air 04/28/23 22:05 96 Room Air Transfer of Care Handoff Completed per policy Notes Mental Status: alert / awake / arousable and participated in evaluation Patient Amnestic to Procedure: Yes Nausea / Vomiting: adequately controlled Pain: adequately controlled Airway Patency, RR, SpO2: stable & adequate BP & HR: stable & adequate Hydration State: stable & adequate Anesthetic Complications: no major complications apparent and Pt Satisfied with anesthetic care
[2023-04-29] MEDS ORDERED: HYDROmorphone INJ 0.5 MG/0.5 ML SYR IV PRN ×2 (05:13)
[2023-04-29] MEDS: fentaNYL citrate PF 100 MCG/2 ML VIAL ONE (05:33)
[2023-04-29] MEDS: LACTATED RINGER'S 1,000 ML IV SCH (05:34)
[2023-04-29] MEDS: ceFAZolin 1000MG 1,000 MG/7.5 ML SYR IV SCH (05:34)
[2023-04-29] MEDS: ACETAMINOPHEN 1,000 MG/100 ML VIAL IV SCH (05:45)
[2023-04-29 06:21] LABS: Appearance Urine Clear (Clear); Bacteria Urine Automated Negative (Negative); Bilirubin Urine Negative (Negative); Blood Urine Trace (Negative); Color Urine Dark Yellow; Epithelial Cell Urine Auto >30 /lpf (0-5); Glucose Urine UA Negative (Negative); Ketones Urine 2+ (Negative); Leukocyte Esterase Urine Negative (Negative); Nitrite Urine Negative (Negative); Protein Urine 1+ (Negative); Specific Gravity Urine 1.026 (1.000-1.030); Urobilinogen Urine Negative (Negative); pH Urine 5.5 (4.5-7.5)
[2023-04-29 06:36] LABS: Mucus Urine Present (None Prsent)
--- NOTE | 2023-04-29 09:14 | Emergency Department Note ---
Impression & Plan Cecal volvulus To the OR with Dr. Marquis ED Provider Note NAME: HARMONY ROYAL AGE: 87 SEX: Female INFORMANT: Patient ED PROVIDER(S): Trish Serrano DO CHIEF COMPLAINT: Right-sided abdominal pain PLAN: Disposition: To the OR with Dr. Marquis MEDICAL DECISION MAKING: This is an 87-year-old female patient who presents to the emergency department with a 24-hour history of right-sided lower abdominal pain and nausea. Patient began to vomit tonight and was concerned she had recurrence of a kidney stone. Laboratory studies revealed no leukocytosis. She was not anemic. Renal function tests were normal. Glucose was mildly elevated at 140. Lactic acid was negative. The patient had a CT scan of the abdomen/pelvis which showed evidence of a cecal volvulus. Patient was medicated with IV Zofran and Toradol for pain upon arrival here in the emergency department. She was given a dose of ceftriaxone and Flagyl once the diagnosis of volvulus was made. I quickly discussed the case with general surgery and they will evaluate the patient for further inpatient care. Care/management discussed with: The patient, her son, and Dr. Marquis, training project manager Triage Nursing notes: Reviewed and agree with them. Vital Signs: reviewed and unremarkable Additional History obtained from: Patient's son is at the bedside Differential Diagnosis: Ureteral colic, pyelonephritis, small bowel obstruction, volvulus, diverticulitis Diagnostics, independently interpreted by me: Cardiac Monitoring: Normal sinus rhythm at 62 Imaging studies: CT scan of the abdomen/pelvis: As per stat rad HPI: 87 year old Female arrives for evaluation of right-sided abdominal pain. Patient developed discomfort approximate 24 hours ago. She had some associated nausea. She has a history of previous kidney stones and that the same thing was occurring. PAST MEDICAL HISTORY: See Below, PAST SURGICAL HISTORY: See Below, SOCIAL HISTORY: See Below, HOME MEDICATIONS: See list ALLERGIES: See list VITALS: See Below PHYSICAL EXAMINATION: HEENT: Head - normocephalic and atraumatic Pupils are equal, round, and reactive to light. Extraocular eye muscles are intact, and sclera are anicteric. Nose - moist nasal mucosa without discharge. Mouth - moist buccal mucosa. Oropharynx is nonerythematous and there is no tonsillar exudate or edema noted. Neck: Supple; no cervical lymphadenopathy or JVD Heart: Regular rate and rhythm. There is a normal S1 and S2 with no murmurs, clicks, or gallops appreciated. Lungs: Clear to auscultation bilaterally with no wheezes, rales, or rhonchi. Abdomen: Soft, moderate tenderness to palpation in the right lower quadrant. There are no palpable pulsatile masses or hepatosplenomegaly. There is no guarding, rigidity, or rebound noted. Extremities: No evidence of cyanosis, clubbing, or edema. There are easily palpable peripheral pulses. Skin: warm and dry with good turgor and no rashes. ED treatment: IV normal saline bolus, IV Zofran, IV Toradol, IV ceftriaxone, IV Flagyl Emergency department course: The patient was evaluated in room B-6. A complete history and physical was performed. An IV lock was initiated and labs were drawn as above. Patient began to vomit was given a dose of IV Zofran and IV Toradol for her pain. She was bolused with IV normal saline solution. Patient went for CT scan of the abdomen/pelvis. Upon returning from radiology, it was noted that she had evidence of a cecal volvulus. She was given dose of IV ceftriaxone and IV Flagyl. I discussed the case with Dr. Marquis and he will evaluate for further inpatient care. Past Med/Surg History Medical History Nausea and vomiting after administration of anesthetic agent Anxiety History of pneumonia 04/2022 Mild asthma rescue inhaler Kidney stone Limb alert care status left arm Hypercholesterolemia hx, no current medication Breast cancer dx 1988 left sx and chemo; and 2009 right, sx tx Anemia Hypothyroidism Surgical History Hx of appendectomy Hx of left cataract extraction S/P trigger finger release H/O: hysterectomy w/bladder sx. History of mastectomy 1988 w/lymph node dissection, limb restriction lt arm, and 2010 right side H/O total knee replacement 1995 and 2003; revision 2011 History of right cataract surgery History of anesthesia reaction gets hypotensive with anesthesia History of tooth extraction History of tonsillectomy age 36 History of esophagogastroduodenoscopy (EGD) History of colonoscopy Social History Smoking Status: Former smoker Tobacco Type: Cigarettes Second Hand Exposure: No; Do You Dip or Chew Tobacco: No; Hx Alcohol Use: Yes Alcohol type: wine Hx Substance Use: No Preferred Language: Martiniquais Communication Ability: Effective Merchandise Team Manager Required: No Beliefs That Will Affect Care: None marital status: / Current Living Situation: Family Current Living Situation Comment: apartment current occupational status: retired Feels Safe at Home: Yes Assistive Devices: Denture - Upper and Denture - Lower Allergies Allergies Allergy/AdvReac Type Severity Reaction Status Date / Time Sulfa (Sulfonamide Allergy Unknown UNKNOWN - Verified 04/29/23 00:41 Antibiotics) ALLERGY A CHILD codeine AdvReac Severe SEVERE Verified 04/29/23 00:41 HEADACHES Home Meds Home Medications Medication Instructions Recorded Confirmed aspirin 81 mg tablet,delayed 81 mg PO QAM 01/16/23 04/29/23 release citalopram 10 mg tablet 10 mg PO HS 01/16/23 04/29/23 levothyroxine 125 mcg capsule 125 mcg PO QAM 01/16/23 04/29/23 omeprazole 20 mg capsule,delayed 20 mg PO HS 01/16/23 04/29/23 release albuterol sulfate 90 mcg/actuation 1 puff inhalation QID PRN 01/23/23 04/29/23 aerosol inhaler Shortness Of Breath Results & Data (ED) Vital Signs Vital Signs - 24 hr 04/28/23 22:05 04/28/23 23:52 Temperature 36.6 C Temperature Source Temporal Artery Scan Pulse Rate 61 Pulse Rate [Apical] 61 Pulse Rhythm Regular Pulse Strength Normal Respiratory Rate 20 18 Respiratory Effort / Characteristics Non-Labored Spontaneous Non-Labored Respiratory Depth Normal Normal Respiratory Pattern Regular Blood Pressure 133/84 Blood Pressure [Right Arm] 187/84 H Blood Pressure Mean 100 Blood Pressure Mean [Right Arm] 118 Pulse Oximetry 96 94 Oxygen Delivery Method Room Air Room Air Sepsis Recent Fever Within 48 Hours No Sepsis New/Unexplained Change in Mental Status N/A Sepsis Action Taken by Nursing No Action Required Laboratory Data 04/28/23 22:53 04/28/23 22:53 Lab Results 04/28/23 04/29/23 Range/Units 22:53 00:01 WBC 5.59 (4.8-10.8) K/ul RBC 4.44 (4.20-5.40) M/uL Hgb 12.9 (12.0-16.0) g/dl Hct 40.5 (37.0-47.0) % MCV 91.2 (80.0-100.0) fL MCH 29.1 (25.0-34.0) pg MCHC 31.9 L (32.0-36.0) g/dL RDW Std Deviation 55.3 H (36.4-46.3) fL RDW Coeff of Osei 16.4 H (11.5-14.5) % Plt Count 274 (130-400) K/uL MPV 10.1 (9.4-12.4) fL Immature Gran % (Auto) 0.2 % Neut % (Auto) 73.1 % Lymph % (Auto) 17.2 % [place] % (Auto) 7.7 % Eos % (Auto) 1.1 % Baso % (Auto) 0.7 % Neut # (Auto) 4.09 (1.40-6.50) K/uL Lymph # (Auto) 0.96 L (1.20-3.40) K/uL [place] # (Auto) 0.43 (0.11-0.59) K/uL Eos # (Auto) 0.06 (0.00-0.50) K/uL Baso # (Auto) 0.04 (0.00-0.20) K/uL Immature Gran # (Auto) 0.01 (0.01-0.20) K/uL Sodium 134 L (136-145) mmol/L Potassium 3.6 (3.5-5.1) mmol/L Chloride 99 (98-107) mmol/L Carbon Dioxide 25 (21-32) mmol/L Anion Gap 10 (3-11) BUN 18 (6-23) mg/dl Creatinine 0.65 (0.6-1.2) mg/dl Est Cr Clr Drug Dosing 53.4 ml/min Est GFR ( Amer) 93.8 ml/min Est GFR (Non-Af Amer) 81.0 ml/min BUN/Creatinine Ratio 27.7 H (10-20) Glucose 140 H (70-99(Fasting)) mg/dl Lactate 1.2 (0.4-2.0) mmol/L Calcium 9.4 (8.6-10.3) mg/dl Total Bilirubin 0.6 (0.2-1.0) mg/dl AST 14 (13-39) U/L ALT 8 (7-52) U/L Alkaline Phosphatase 70 (34-104) U/L Total Protein 8.2 (6.0-8.3) gm/dl Albumin 4.2 (3.4-5.0) gm/dl Globulin 4.0 (2.5-4.0) gm/dl Albumin/Globulin Ratio 1.1 (0.9-2) Administered Medications Cefazolin Sodium (Ancef 1000mg) 1,000 mg in 7.5 mls @ 2.5 mls/min IV Q8H [facility]; Protocol Stop: 04/30/23 05:59 Last Admin: 04/29/23 05:34 Dose: 2.5 mls/min Documented By: RPW Acetaminophen (Ofirmev) 1,000 mg in 100 mls @ 400 mls/hr IV Q8H [facility] Stop: 05/02/23 05:12 Last Infusion: 04/29/23 07:54 Dose: Infused Documented By: Admin: 04/29/23 05:45 Dose: 400 mls/hr Documented By: RPW Lactated Ringer's (Lr) 1,000 mls @ 100 mls/hr IV .Q10H [facility] Stop: 05/29/23 05:12 Last Admin: 04/29/23 05:34 Dose: 100 mls/hr Documented By: RPW Discontinued Medications Fentanyl Citrate (Fentanyl Citrate Pf 100 Mcg/2 Ml Vial) 25 mcg IV Q5M PRN PRN Reason: PACU Use Only-Pain Stop: 04/29/23 09:12 Last Admin: 04/29/23 03:50 Dose: 25 mcg Documented By: Admin: 04/29/23 03:40 Dose: 25 mcg Documented By: Admin: 04/29/23 03:30 Dose: 25 mcg Documented By: Admin: 04/29/23 03:20 Dose: 25 mcg Documented By: SED Fentanyl Citrate (Fentanyl Citrate Pf 100 Mcg/2 Ml Vial) Confirm Administered Dose 100 mcg .ROUTE .STK-MED ONE Stop: 04/29/23 03:19 Last Admin: 04/29/23 05:33 Dose: Not Given Documented By: RPW Sodium Chloride (Nss) 500 mls @ 999 mls/hr IV .Q31M STA Stop: 04/28/23 22:38 Last Infusion: 04/28/23 23:48 Dose: Infused Documented By: Admin: 04/28/23 22:50 Dose: 999 mls/hr Documented By: SHAHANA Ceftriaxone Sodium (Rocephin) 2,000 mg in 50 mls @ 100 mls/hr IV NOW STA Stop: 04/29/23 00:20 Last Infusion: 04/29/23 01:23 Dose: Infused Documented By: Admin: 04/29/23 00:43 Dose: 100 mls/hr Documented By: JOSH Metronidazole (Flagyl) 500 mg in 100 mls @ 100 mls/hr IV NOW STA; Protocol Stop: 04/29/23 00:50 Last Infusion: 04/29/23 05:32 Dose: Infused Documented By: Admin: 04/29/23 00:43 Dose: 100 mls/hr Documented By: JOSH Ketorolac Tromethamine (Ketorolac Tromethamine 15 Mg/Ml Vial) 15 mg IV ONE STA Stop: 04/28/23 22:09 Last Admin: 04/28/23 22:49 Dose: 15 mg Documented By: SHAHANA Ondansetron HCl (Ondansetron Inj 2 Mg/Ml 2 Ml Vial) 4 mg IV NOW STA Stop: 04/28/23 22:09 Last Admin: 04/28/23 22:50 Dose: 4 mg Documented By: SHAHANA Imaging Data Radiologist's Impression: Abdomen/Pelvis CT 04/28/23 22:08 CR Exam(s): CT ABDOMEN + PELVIS Without Contrast EXAM: CT Abdomen and Pelvis Without Intravenous Contrast CLINICAL HISTORY: Reason for exam: kidney stones. TECHNIQUE: Axial computed tomography images of the abdomen and pelvis without intravenous contrast. CTDI is 21.15 mGy and DLP is 880.8 mGy-cm. Automated exposure control was utilized for the study. A dose lowering technique was utilized adhering to the principles of ALARA. COMPARISON: [place] [id number] FINDINGS: Mediastinum: Moderate hiatal hernia. ABDOMEN: Liver: Unremarkable. Gallbladder and bile ducts: Unremarkable. Pancreas: Unremarkable. Spleen: Unremarkable. Adrenals: Unremarkable. Kidneys and ureters: Nonobstructing nephrolithiasis on the right. No hydronephrosis in the kidneys. Stomach and bowel: Swirling of the mesentery in the right lower quadrant. The cecum is flipped into the left upper quadrant and distended up to 10 cm. Findings consistent with cecal volvulus. Colonic diverticulosis without diverticulitis. PELVIS: Appendix: No findings to suggest acute appendicitis. Bladder: Unremarkable. Reproductive: Hysterectomy. ABDOMEN and PELVIS: Intraperitoneal space: Unremarkable. No free air. No significant fluid collection. Bones/joints: No acute fracture. Soft tissues: Unremarkable. Vasculature: Aortobiiliac atherosclerotic calcifications. Lymph nodes: Unremarkable. IMPRESSION: Swirling of the mesentery in the right lower quadrant. The cecum is flipped into the left upper quadrant and distended up to 10 cm. Findings consistent with cecal volvulus. No pneumatosis or perforation. Communications: Call Doctor Volvulus Electronically signed by: Darien Herrera MD 04/28/23 23:35 PM Discharge Plan Visit Data Chief Complaint: Kidney Stone Stated Complaint: KIDNEY STONE, VOMITTING, BACK/FLANK PAIN ED Provider: Trish Serrano Discharge Problem: Cecal volvulus Patient Disposition: Admitted As Inpatient Discharge Instructions Interventions: ED Discharge Assessment Last Done: 04/29/23 01:45
--- NOTE | 2023-04-29 09:49 | Surgery Progress Note ---
Date of Service April 29, 2023 Assessment & Plan (1) Cecal volvulus: Plan: POD 1/2 doing very well will d/c ngt and start clears. OOB today Admission and Anticipated Discharge Date Admission Date: April 29, 2023 Subjective pt seen. doing remarkably well. minimal discomfort. "thirsty" Physical Exam Physical Exam: alert. nad. ngt with scant output abd: non-distended. Results & Data Vital Signs (Past 12 Hours) Vital Signs Temp Pulse Pulse Pulse Resp BP BP 04/29/23 07:26 36.6 C 58 L 16 129/66 04/29/23 06:30 36.8 C 59 L 16 135/67 04/29/23 05:33 36.6 C 55 L 16 136/71 04/29/23 05:13 36.5 C 55 L 17 131/79 04/29/23 05:06 04/29/23 05:00 36.5 C 55 L 16 131/79 04/29/23 04:57 36.6 C 53 L 18 128/60 04/29/23 04:15 62 16 133/72 04/29/23 04:00 63 16 139/68 04/29/23 03:50 57 L 21 132/72 04/29/23 03:40 36.3 C L 58 L 12 140/62 04/29/23 03:30 65 22 139/76 04/29/23 03:20 70 17 156/92 H 04/29/23 03:11 36.4 C L 72 17 131/88 04/28/23 23:52 61 18 04/28/23 22:05 36.6 C 61 20 133/84 BP Pulse Ox O2 Del Method O2 Flow Rate 04/29/23 07:26 93 Room Air 04/29/23 06:30 96 Nasal Cannula 2 04/29/23 05:33 96 Nasal Cannula 2 04/29/23 05:13 Nasal Cannula 2 04/29/23 05:06 Nasal Cannula 2 04/29/23 05:00 95 Nasal Cannula 2 04/29/23 04:57 95 Nasal Cannula 2 04/29/23 04:15 95 Nasal Cannula 2 04/29/23 04:00 95 Nasal Cannula 2 04/29/23 03:50 97 Nasal Cannula 2 04/29/23 03:40 98 Nasal Cannula 2 04/29/23 03:30 98 Oxymask 3 04/29/23 03:20 100 Oxymask 6 04/29/23 03:11 92 Oxymask 6 04/28/23 23:52 187/84 H 94 Room Air 04/28/23 22:05 96 Room Air PG Care Time/CCT Total # of Minutes Spent Total Time Spent with Patient: Total time spent is greater than 50% in coordination of care (as documented) at patient's floor/unit and/or counseling patient: Coding Level of Care Code 77121 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
[2023-04-30] MEDS ORDERED: oxyCODONE HCL IR 5 MG TAB (IMMEDIATE RELEASE) PO PRN (07:15)
[2023-04-30 07:26] LABS: Albumin Globulin Ratio 1.1 (0.9-2); Albumin Level 3.1 gm/dl (3.4-5.0); BUN Creatinine Ratio 20.8 (10-20); Bilirubin,Total 0.6 mg/dl (0.2-1.0); Calcium 7.8 mg/dl (8.6-10.3); Creatinine Clr Calc Pharmacy 73.2 ml/min; Est GFR (African American) 103.7 ml/min; Est GFR (Non-African American) 89.4 ml/min; Globulin 2.7 gm/dl (2.5-4.0); Potassium 3.4 mmol/L (3.5-5.1); Total Protein 5.8 gm/dl (6.0-8.3)
[2023-04-30 07:28] LABS: Basophils # (auto) 0.02 K/uL (0.00-0.20); Basophils % (auto) 0.4 %; Eosinophils # (auto) 0.04 K/uL (0.00-0.50); Eosinophils % (auto) 0.7 %; Hematocrit (blood only) 30.4 % (37.0-47.0); Hemoglobin 9.9 g/dl (12.0-16.0); Immature Granulocytes # (auto) 0.02 K/uL (0.01-0.20); Immature Granulocytes % (auto) 0.4 %; Lymphocytes # (auto) 1.37 K/uL (1.20-3.40); Lymphocytes % (auto) 24.6 %; Mean Corpuscular Hemoglobin 28.9 pg (25.0-34.0); Mean Corpuscular Hgb Conc 32.6 g/dL (32.0-36.0); Mean Corpuscular Volume 88.9 fL (80.0-100.0); Mean Platelet Volume 10.3 fL (9.4-12.4); Monocytes # (auto) 0.49 K/uL (0.11-0.59); Monocytes % (auto) 8.8 %; Neutrophils # (auto) 3.64 K/uL (1.40-6.50); Neutrophils % (auto) 65.1 %; Platelet Count 205 K/uL (130-400); RDW Coefficient of Variation 16.7 % (11.5-14.5); RDW Standard Deviation 54.4 fL (36.4-46.3); Red Blood Count 3.42 M/uL (4.20-5.40); White Blood Count 5.58 K/ul (4.8-10.8)
--- NOTE | 2023-04-30 07:49 | Surgery Progress Note ---
Date of Service April 30, 2023 Assessment & Plan (1) Cecal volvulus: Plan: POD#1 ex lap and right hemicolectomy WBC 5.5, Hbg 9.9 (12.9), Vitals signs are stable Pringle 800 over last 12 hours, could consider removal if able to get out of bed later Incisions c/d/i, belly soft, some discomfort in right side Continue on clears until bowel function returns OOB as tolerates and pulmonary toilet today as above. doing well. will d/c pringle. d/c IVF advance to full liquids. OOB/Physical therapy Admission and Anticipated Discharge Date Admission Date: April 29, 2023 Subjective Patient reports feeling pretty good. Pain controlled on tylenol, wants to avoid narcotics. Was out of bed to chair yesterday, but has not done much walking around yet. Denies nausea/vomiting. Tolerating clears but not much appetite. No flatus/BM yet. Physical Exam Physical Exam: awake/alert, no distress Respiratory: normal respiratory effort Gastrointestinal (Abdomen): Inspection/Auscultation: + abdominal surgical incision (c/d/i with kenton and juan f drain); abdomen not distended Percussion/Palpation: + abdomen tender (some right lower abdominal discomfort) and abdomen soft Results & Data Vital Signs (Past 12 Hours) Vital Signs O2 Del Method 04/29/23 21:04 Room Air PG Care Time/CCT Total # of Minutes Spent Total Time Spent with Patient: Total time spent is greater than 50% in coordination of care (as documented) at patient's floor/unit and/or counseling patient: Coding Level of Care Code 84461 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
[2023-04-30] MEDS: CITALOPRAM 20 MG TAB PO SCH (20:03)
[2023-04-30] MEDS: PANTOprazole 40 MG TAB PO SCH (20:04)
[2023-05-01] MEDS: LEVOTHYROXINE SODIUM 125 MCG TABLET PO SCH (05:33)
[2023-05-01 06:44] LABS: Basophils # (auto) 0.03 K/uL (0.00-0.20); Basophils % (auto) 0.5 %; Eosinophils # (auto) 0.37 K/uL (0.00-0.50); Eosinophils % (auto) 6.4 %; Hematocrit (blood only) 31.9 % (37.0-47.0); Hemoglobin 10.2 g/dl (12.0-16.0); Immature Granulocytes # (auto) 0.02 K/uL (0.01-0.20); Immature Granulocytes % (auto) 0.3 %; Lymphocytes # (auto) 1.14 K/uL (1.20-3.40); Lymphocytes % (auto) 19.7 %; Mean Corpuscular Hemoglobin 29.2 pg (25.0-34.0); Mean Corpuscular Volume 91.4 fL (80.0-100.0); Mean Platelet Volume 10.2 fL (9.4-12.4); Monocytes # (auto) 0.46 K/uL (0.11-0.59); Monocytes % (auto) 7.9 %; Neutrophils # (auto) 3.78 K/uL (1.40-6.50); Neutrophils % (auto) 65.2 %; Platelet Count 192 K/uL (130-400); RDW Coefficient of Variation 16.2 % (11.5-14.5); RDW Standard Deviation 54.5 fL (36.4-46.3); Red Blood Count 3.49 M/uL (4.20-5.40)
[2023-05-01 07:16] LABS: Albumin Globulin Ratio 1.1 (0.9-2); Albumin Level 3.1 gm/dl (3.4-5.0); BUN Creatinine Ratio 22.9 (10-20); Bilirubin,Total 0.6 mg/dl (0.2-1.0); Calcium 7.8 mg/dl (8.6-10.3); Creatinine Clr Calc Pharmacy 73.2 ml/min; Est GFR (African American) 103.7 ml/min; Est GFR (Non-African American) 89.4 ml/min; Globulin 2.9 gm/dl (2.5-4.0); Potassium 3.1 mmol/L (3.5-5.1)
[2023-05-01] MEDS: POTASSIUM CHLORIDE CRTAB 20 MEQ TABCR PO STA (08:56)
--- NOTE | 2023-05-01 09:05 | Surgery Progress Note ---
Date of Service May 01, 2023 Assessment & Plan (1) Cecal volvulus: Plan: POD#2 ex lap and right hemicolectomy WBC 5.8, Hbg 10.2, Vitals signs are stable Is voiding since pringle removal Ambulating and worked with PT who cleared her for home Pain controlled with prn Tylenol Incision intact with midline kenton and juan f, small bloody drainage, belly soft, some discomfort in right side Some passage of flatus. On fulls without issues. Await BM prior to advancing to low fiber OOB as tolerates and pulmonary toilet today as above. doing great. +flatus/no bm yet. awaiting full return of bowel fx. Admission and Anticipated Discharge Date Admission Date: April 29, 2023 Subjective Patient feeling okay this AM. Pain controlled on tylenol which helps take off the edge, she does not like narcotics how they make her feel. She is tolerating small amounts of full liquids without nausea/vomiting. She thinks she is passing a little bit of gas still, but no BM. Has been ambulating yesterday and worked with PT. Physical Exam Physical Exam: awake/alert, no distress Respiratory: normal respiratory effort Gastrointestinal (Abdomen): Inspection/Auscultation: + abdominal surgical incision (midline incision with kenton/juan f, small blood drainage noted); abdomen not distended Percussion/Palpation: + abdomen tender (some mild discomfort to R side of incision ) and abdomen soft Results & Data Vital Signs (Past 12 Hours) Vital Signs Temp Pulse Resp BP Pulse Ox O2 Del Method 05/01/23 08:30 98.4 F 53 L 16 153/78 H 93 Room Air PG Care Time/CCT Total # of Minutes Spent Total Time Spent with Patient: Total time spent is greater than 50% in coordination of care (as documented) at patient's floor/unit and/or counseling patient: Coding Level of Care Code 63948 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
[2023-05-02 07:31] LABS: Basophils # (auto) 0.04 K/uL (0.00-0.20); Basophils % (auto) 0.6 %; Eosinophils # (auto) 0.83 K/uL (0.00-0.50); Eosinophils % (auto) 11.8 %; Hematocrit (blood only) 33.5 % (37.0-47.0); Hemoglobin 11.1 g/dl (12.0-16.0); Immature Granulocytes # (auto) 0.02 K/uL (0.01-0.20); Immature Granulocytes % (auto) 0.3 %; Lymphocytes # (auto) 1.28 K/uL (1.20-3.40); Lymphocytes % (auto) 18.2 %; Mean Corpuscular Hemoglobin 29.3 pg (25.0-34.0); Mean Corpuscular Hgb Conc 33.1 g/dL (32.0-36.0); Mean Corpuscular Volume 88.4 fL (80.0-100.0); Mean Platelet Volume 10.2 fL (9.4-12.4); Monocytes # (auto) 0.46 K/uL (0.11-0.59); Monocytes % (auto) 6.5 %; Neutrophils # (auto) 4.41 K/uL (1.40-6.50); Neutrophils % (auto) 62.6 %; Platelet Count 229 K/uL (130-400); RDW Standard Deviation 51.9 fL (36.4-46.3); Red Blood Count 3.79 M/uL (4.20-5.40); White Blood Count 7.04 K/ul (4.8-10.8)
--- NOTE | 2023-05-02 08:46 | Surgery Progress Note ---
Date of Service May 02, 2023 Assessment & Plan (1) Cecal volvulus: Plan: POD#3 ex lap and right hemicolectomy Incision intact with midline kenton and juan f, small bloody drainage, dressing changed to gauze and tape Some passage of flatus tolerating full liquids ambulating in halls VSS WBC wnl electrolytes to be replace per primary service waiting for bowel function as above. doing very well awaiting return of bowel fx will advance to low fiber diet. d/c planning as soon as she has a bowel movement Admission and Anticipated Discharge Date Admission Date: April 29, 2023 Subjective Mild abdominal pain with movements ambulating ok + flatus No n/v , fever or chills tolerating fulls Review of Systems Constitutional: no fever and no chills Respiratory: no dyspnea Cardiovascular: no chest pain Gastrointestinal: + abdominal pain; no nausea and no vomit ing Genitourinary: no dysuria Musculoskeletal: no muscle weakness Physical Exam Physical Exam: awake/alert, no distress Constitutional: no acute distress and not ill appearing Respiratory: normal respiratory effort and able to speak in complete sentences; no respiratory distress Cardiovascular: Rate/Rhythm: regular rate Gastrointestinal (Abdomen): Inspection/Auscultation: + abdominal surgical incision (midline incision with kenton/juan f, small blood drainage noted); abdomen not distended Percussion/Palpation: + abdomen tender (some mild discomfort to R side of incision ) and abdomen soft Skin: no rashes, warm and dry Neurologic: moves all extremities Psychiatric: Orientation: alert, oriented x 3 and cooperative Results & Data Vital Signs (Past 12 Hours) Vital Signs Temp Pulse Resp BP Pulse Ox O2 Del Method 05/02/23 07:32 97.7 F 62 16 156/83 H 92 Room Air Results Complete Blood Count Results: RBC 3.79 M/uL (4.20-5.40) L 05/02/23 WBC 7.04 K/ul (4.8-10.8) 05/02/23 Hgb 11.1 g/dl (12.0-16.0) L 05/02/23 Hct 33.5 % (37.0-47.0) L 05/02/23 Plt Count 229 K/uL (130-400) 05/02/23 Results BMP Results: Sodium 135 mmol/L (136-145) L 05/02/23 Potassium 3.7 mmol/L (3.5-5.1) 05/02/23 Chloride 101 mmol/L (98-107) 05/02/23 Carbon Dioxide 27 mmol/L (21-32) 05/02/23 Anion Gap 7 (3-11) 05/02/23 BUN 13 mg/dl (6-23) 05/02/23 Creatinine 0.52 mg/dl (0.6-1.2) L 05/02/23 Glucose 84 mg/dl (70-99(Fasting)) 05/02/23 PG Care Time/CCT Total # of Minutes Spent Total Time Spent with Patient: Total time spent is greater than 50% in coordination of care (as documented) at patient's floor/unit and/or counseling patient: Coding Level of Care Code 63650 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
[2023-05-02 09:01] LABS: Albumin Level 3.2 gm/dl (3.4-5.0); Bilirubin,Total 0.6 mg/dl (0.2-1.0); Calcium 8.3 mg/dl (8.6-10.3); Creatinine Clr Calc Pharmacy 67.6 ml/min; Est GFR (Non-African American) 87.1 ml/min; Globulin 3.2 gm/dl (2.5-4.0); Potassium 3.7 mmol/L (3.5-5.1); Total Protein 6.4 gm/dl (6.0-8.3)
[2023-05-02] MEDS: ACETAMINOPHEN 325 MG TAB PO PRN (17:28)
[2023-05-03] MEDS: ENOXAPARIN INJ 40 MG/0.4 ML SYR SQ SCH (08:24)
--- NOTE | 2023-05-03 09:29 | Surgery Progress Note ---
<Statement entered by Torres Brown DO - 05/04/23 14:55> This case was discussed with the surgical PA Date of Service May 03, 2023 Assessment & Plan (1) Cecal volvulus: Plan: POD#4 ex lap and right hemicolectomy Patient was advanced yesterday to low fiber and she is tolerating without issues She is passing gas and having BMs Pain is well controlled Abdomen soft, non tender, Incision intact with midline kenton and juan f Will d/c juan f prior to leaving She is stable for discharge to home Dispo instructions reviewed, f/u in the office within 10 days for staple removal Admission and Anticipated Discharge Date Admission Date: April 29, 2023 Subjective Patient is feeling well. Tolerating a diet, no nausea/vomiting. Pain controlled. Is passing gas and having BM's, said they were dark with no bright red blood. Physical Exam Physical Exam: awake/alert, no distress Respiratory: normal respiratory effort Gastrointestinal (Abdomen): Inspection/Auscultation: + abdominal surgical incision (midline incision with kenton/juan f, no signs of infection); abdomen not distended Percussion/Palpation: + abdomen tender (some mild discomfort to R side of incision ) and abdomen soft Results & Data Vital Signs (Past 12 Hours) Vital Signs Temp Pulse Resp BP Pulse Ox O2 Del Method 05/03/23 07:14 98.2 F 56 L 18 145/79 H 96 Room Air PG Care Time/CCT Total # of Minutes Spent Total Time Spent with Patient: Total time spent is greater than 50% in coordination of care (as documented) at patient's floor/unit and/or counseling patient: Coding Level of Care Code 94095 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
== END 2023-05-03 16:29 | disposition home or self-care (01) | DRG 331 ==
LOC: ED 21:59 → OR 04-29 02:06 → 3W 04-29 03:11
DX: Z88.5 Allergy status to narcotic agent; Z79.82 Long term (current) use of aspirin; K56.2 Volvulus; Z79.890 Hormone replacement therapy; Z87.891 Personal history of nicotine dependence; E03.9 Hypothyroidism, unspecified; Z88.2 Allergy status to sulfonamides; Z85.3 Personal history of malignant neoplasm of breast